=== PATIENT | male | born 1955 | race Caucasian/White ===

== ENCOUNTER → 2016-09-12 | Outpatient (CLI) | payer MEDICARE, MEDICAID ==
[~2016-09-12] MED LIST: ATORVASTATIN CA20 M1 PO; CARVEDILOL25 MG PO; CARVEDILOL3.125 MG NG; COREG25 MG PO; ENALAPRIL20 MG PO; FAMOTIDINE40 MG NG; FELODIPINE10 MG PO; FELODIPINE5 MG PO; FLUOXETINE40 MG NG; FLUOXETINE40 MG PO; HUMALOG100 U/ML SC; LEVAQUIN750 M1 PO; LIPITOR20 MG PO; LISINOPRIL10 M1 PO; LISINOPRIL20 MG NG; LYRICA100 M1 PO; METFORMIN500 MG PO; NOVOLIN R100 U/ML SC; OMNICEF250 MG/5 M PO; PLAVIX75 M1 PO; PROZAC20 MG PO; PROZAC40 M1 PO; SILVADENE1% TP; SIMVASTATIN40 MG NG; SIMVASTATIN40 MG PO; TRAMADOL HCL50 MG PO; VITAMIN D5000 I3 PO; ZOCOR80 MG PO
[2016-09-12 14:53] LABS: HEMATOCRIT 37.3 % (42.0-52.0); HEMOGLOBIN 11.9 g/dl (14.0-18.0); MEAN CELL VOLUME 93.5 fl (80.0-94.0); MEAN CORPUSCULAR HGB 29.8 pg (27.0-31.0); MEAN CORPUSCULAR HGB CONC 31.9 g/dl (33.0-37.0); MEAN PLATELET VOLUME 10.2 fl (9.6-12.3); RED BLOOD COUNT 3.99 10*6/uL (4.50-5.90); RED CELL DISTRI WIDTH 13.7 % (0-14.5); WHITE BLOOD COUNT 6.4 10*3/uL (4.8-10.8)
[2016-09-12 15:09] LABS: HEMOGLOBIN A1c 5.4 % (4.8-5.6)
[2016-09-12 15:20] LABS: ALBUMIN 3.1 gm/dl (3.1-4.5); ALKALINE PHOSPHATASE 75 U/L (45-117); BILIRUBIN, TOTAL 0.3 mg/dl (0.2-1.0); BUN 21 mg/dl (7-24); CARBON DIOXIDE 25 mmol/L (21-32); CHLORIDE 107 mmol/L (98-107); CHOLESTEROL 109 mg/dL (<200); CPK 55 U/L (39-308); EST GLOM FILT AFRICAN AMERICAN > 60 ml/min; GLUCOSE 72 mg/dL (65-99); HDL CHOLESTEROL 49 mg/dl (40-60); LDL CHOLESTEROL 42 mg/dL (9-159); POTASSIUM 4.7 mmol/L (3.5-5.1); SGOT/AST 21 IU/L (3-35); SGPT/ALT 20 U/L (12-78); SODIUM 141 mmol/L (136-145); TOTAL PROTEIN 7.5 gm/dL (6.4-8.2); TRIGLYCERIDES 92 mg/dl (<150); VLDL CHOLESTEROL 18 mg/dL (6-40)
== END | disposition home or self-care (01) ==
LOC: LAB 14:23
PROVIDERS: Family Medicine
DX: Z12.5 Encounter for screening for malignant neoplasm of prostate (principal); Z01.818 Encounter for other preprocedural examination; E11.9 Type 2 diabetes mellitus without complications; E78.00 Pure hypercholesterolemia, unspecified; I10 Essential (primary) hypertension; E56.9 Vitamin deficiency, unspecified; Z95.1 Presence of aortocoronary bypass graft

== ENCOUNTER 2016-10-26 14:40 | Inpatient (IN) | payer MEDICARE, MEDICAID ==
[~2016-10-26] VITALS: Ht 190.5 cm; Wt 83.3 kg
--- NOTE | ~2016-10-26 | CON ---
[place], [place] REPORT OF CONSULTATION NAME: YONI NEGRON UNIT #: [id number] ROOM: 528 DOCTOR: KRYSTLE LOGAN MOTLEY BIRTHDATE: [birth year] DOS: 10/27/2016 SUBJECTIVE: The patient presents as a 61-year-old white male who presents for infected ____ wound of the left foot. The patient had surgery performed a month and a half ago by Dr. Pearce. the patient was supposed to have home wound care, which did not occur until recently. The patient's stated it became more red around the surgical site and the patient was sent to the hospital. PAST MEDICAL HISTORY: Ataxia, CVA, chronic diabetes, GERD, kidney cancer, laryngeal cancer, hyperlipidemia, hypertension, normocytic anemia. PAST SURGICAL HISTORY: Amputation of left hallux and right mid foot and history of CABG, amputation of second left toe, amputated at the distal IPJ. SOCIAL HISTORY: Alcohol abuse, in remission, former smoker, quit in 2013, smoked 2 packs per day since age 13, marijuana use occasionally. FAMILY HISTORY: Father unknown, . Mother unknown, . ALLERGIES: ACETAMINOPHEN, ASPIRIN, CODEINE, BENADRYL. PHYSICAL EXAMINATION: LOWER EXTREMITIES: Mid foot amputation noted to the right foot. Left hallux amputation noted. Left foot pedal pulse is nonpalpable. Decreased skin temperature. Lack of hair growth. Skin thin and shiny. Ulceration overlying the post-amputation site over the dorsal first left metatarsal head. The ulceration is full thickness through subcutaneous tissue level. There are no signs of abscess or purulent drainage. Superficial granulation noted. No signs of proximal cellulitis. IMAGING: Radiographs taken of the left foot reveal status post amputation of first and second left toes also. ASSESSMENT: Diabetic ulceration, peripheral vascular disease, left foot. PLAN: Evaluation and management. Ordered MRI of the left foot to rule out underlying osteomyelitis. Ordered Bactroban and gauze dressing daily, also ordered arterial Doppler bilateral of lower extremity. The patient may need vascular intervention. The patient will be seen for continued care and followup. Thank you for the consultation. [place], [place] REPORT OF CONSULTATION NAME: YONI NEGRON UNIT #: [id number] ROOM: 528 DOCTOR: LOGAN DALTON DPM BIRTHDATE: [birth year] LOGAN DALTON DPM CM:CONSTR:REPORT OF CONSULTATION 1112 10/27/16 1718 interface
--- NOTE | ~2016-10-26 | PR ---
[place], [place] PROGRESS NOTE NAME: YONI NEGRON [facility] #: [id number] UNIT #: [id number] ROOM: 528 DOCTOR: LOGAN DALTON DPM BIRTHDATE: [birth year] DOS: 10/30/2016 SUBJECTIVE: The patient presents for followup of cellulitis, ulceration of the left foot. OBJECTIVE: The ulceration is noted with no signs of purulent drainage or infection. Again, the patient's arterial testing revealed severe arteriosclerotic disease throughout the left common, external iliac arteries with total occlusion of the proximal SFA on the left and the right side showed total occlusion of the right common iliac artery and previous grafts occluded. ASSESSMENT: Severe peripheral arterial disease, nonhealing ulcer, left foot. PLAN: Reviewed the MRI, which showed no signs of osteomyelitis. Discussed with the patient. As he is discharged, he is to follow with ____, his vascular surgeon as soon as possible for vascular intervention and the patient will follow with Dr. Pearce for the ulceration. LOGAN DALTON DPM CM:PNAPRIL [phone] LOGAN DALTON DPM 10/31/16 0730 interface
--- NOTE | ~2016-10-26 | PR ---
[place], [place] PROGRESS NOTE NAME: YONI NEGRON [facility] #: [id number] UNIT #: [id number] ROOM: 528 DOCTOR: BRYAN MOTLEY,JAZMYN BIRTHDATE: [birth year] DOS: 10/29/2016 SUBJECTIVE: This patient is seen for followup of cellulitis and infection of the left foot in the area of the left great toe amputation, which was performed by Dr. Pearce. The patient states he is feeling okay, has no significant complaints. OBJECTIVE: Upon evaluation of left foot, pedal pulses are absent. There is minimal edema and erythema, no purulent drainage or malodor. The wound is fairly clean. There is minimal slough tissue noted. There are no signs of abscess. No significant cellulitis seen at this time. The patient's CTA showed severe atherosclerotic disease throughout the left common and left external iliac arteries with total occlusion of the proximal SFA, reconstitution at the left popliteal artery. On the right side, there was total occlusion of the right common iliac artery, numerous collateral vessels reconstitute through the popliteal and his previous graft is occluded. ASSESSMENT: Significant peripheral artery disease, nonhealing ulcer, left foot, status post amputation, resolving cellulitis. PLAN: Dressing is changed. I discussed with the patient as well as nurse that the patient needs a vascular evaluation and intervention. If he does not, the wound may most likely will not heal. Luckily, he has no necrotic or gangrenous tissue clinically and the infection is uncontrolled at this time. He has seen at [facility] in the past, so he needs to see Vascular for evaluation. We will continue to follow him while he is in the hospital and then he can follow up with Dr. Pearce once discharged and again follow up with Vascular. JAZMYN ADAMS DPM CM:PNTRANS [phone] JAZMYN ADAMS DPM 10/29/16 0093 interface
--- NOTE | ~2016-10-26 | PR ---
[place], [place] PROGRESS NOTE NAME: YONI [facility] #: [id number] UNIT #: [id number] ROOM: 528 DOCTOR: LOGAN DALTON DPM BIRTHDATE: [birth year] DOS: 10/28/2016 ADDENDUM Infected wound of the left foot. SUBJECTIVE: The patient sent in for followup of ulceration in the left foot. The patient is resting comfortably in the bed. OBJECTIVE: Upon evaluation of the ulceration, dorsal first left metatarsal head ulceration, full thickness through subcutaneous tissue level. No signs of purulent drainage or foul odor. The patient's blood cultures negative. Wound culture negative. The patient's CBC with differential revealed WBC of 5.1. The patient's arterial Doppler reveals aortoiliac occlusive disease on the right. This extends into the common femoral and superficial femoral artery occlusion. Flow detected at the right popliteal and tibial vessels, monophasic waveforms throughout the left lower extremity. ASSESSMENT: Diabetic ulceration, left foot. PLAN: Evaluation and management. Continue conservative local wound care with Bactroban dressings. Waiting for results of the MRI to rule out osteomyelitis. Discussed with the patient and recommend vascular intervention. Again, recommend the patient be transferred for vascular intervention due to the abnormal findings and evidence of arterial occlusive disease. The patient is a candidate for arterial basis. We will follow the patient tomorrow for followup. LOGAN DALTON DPM CM:PNAPRIL [phone] LOGAN DALTON DPM 10/28/162134 interface
[2016-10-26 15:28] VITALS: BP 135/73
[2016-10-26] MEDS ORDERED: LISINOPRIL10 M1 PO (15:29)
[2016-10-26 15:55] LABS: BASO % 0.6 % (0.0-1.0); EOS # 0.2 10*3/uL (0.0-0.4); EOS % 2.7 % (1.0-4.0); HEMATOCRIT 41.5 % (42.0-52.0); HEMOGLOBIN 13.5 g/dl (14.0-18.0); LYMPH # 1.3 10*3/uL (1.3-4.4); LYMPH % 18.6 % (27.0-41.0); MEAN CORPUSCULAR HGB 29.9 pg (27.0-31.0); MEAN CORPUSCULAR HGB CONC 32.5 g/dl (33.0-37.0); MEAN PLATELET VOLUME 10.5 fl (9.6-12.3); MONO # 0.6 10*3/uL (0.1-1.0); MONO % 9.1 % (3.0-9.0); NEUT # 4.8 10*3/uL (2.3-7.9); NEUT % 68.7 % (47.0-73.0); PLATELET COUNT AUTOMATED 181 10*3/uL (130-400); RED BLOOD COUNT 4.51 10*6/uL (4.50-5.90); RED CELL DISTRI WIDTH 13.6 % (0-14.5)
[2016-10-26 16:10] LABS: ALBUMIN 3.7 gm/dl (3.1-4.5); ALKALINE PHOSPHATASE 76 U/L (45-117); BILIRUBIN, TOTAL 0.6 mg/dl (0.2-1.0); BUN 19 mg/dl (7-24); CARBON DIOXIDE 25 mmol/L (21-32); CHLORIDE 105 mmol/L (98-107); EST GLOM FILT AFRICAN AMERICAN > 60 ml/min; GLUCOSE 76 mg/dL (65-99); POTASSIUM 4.3 mmol/L (3.5-5.1); SGOT/AST 28 IU/L (3-35); SGPT/ALT 28 U/L (12-78); SODIUM 140 mmol/L (136-145); TOTAL PROTEIN 7.9 gm/dL (6.4-8.2)
[2016-10-26 20:00] VITALS: BP 146/88
[2016-10-26 20:10] VITALS: BP 146/88
[2016-10-27] VITALS: BP 145/71
[2016-10-27 04:00] VITALS: BP 142/58
[2016-10-27 07:17] LABS: BASO % 0.4 % (0.0-1.0); EOS # 0.2 10*3/uL (0.0-0.4); EOS % 3.7 % (1.0-4.0); HEMATOCRIT 38.2 % (42.0-52.0); HEMOGLOBIN 12.3 g/dl (14.0-18.0); LYMPH # 1.3 10*3/uL (1.3-4.4); LYMPH % 25.3 % (27.0-41.0); MEAN CELL VOLUME 93.2 fl (80.0-94.0); MEAN CORPUSCULAR HGB CONC 32.2 g/dl (33.0-37.0); MEAN PLATELET VOLUME 10.9 fl (9.6-12.3); MONO # 0.5 10*3/uL (0.1-1.0); MONO % 9.4 % (3.0-9.0); NEUT # 3.1 10*3/uL (2.3-7.9); PLATELET COUNT AUTOMATED 175 10*3/uL (130-400); RED CELL DISTRI WIDTH 13.5 % (0-14.5); WHITE BLOOD COUNT 5.1 10*3/uL (4.8-10.8)
[2016-10-27 07:41] LABS: ALBUMIN 3.2 gm/dl (3.1-4.5); ALKALINE PHOSPHATASE 62 U/L (45-117); BILIRUBIN, TOTAL 0.6 mg/dl (0.2-1.0); BUN 16 mg/dl (7-24); CARBON DIOXIDE 27 mmol/L (21-32); CHLORIDE 105 mmol/L (98-107); CHOLESTEROL 115 mg/dL (<200); EST GLOM FILT AFRICAN AMERICAN > 60 ml/min; GLUCOSE 72 mg/dL (65-99); HDL CHOLESTEROL 49 mg/dl (40-60); LDL CHOLESTEROL 50 mg/dL (9-159); MAGNESIUM 1.9 mg/dL (1.5-2.1); PHOSPHOROUS 2.9 mg/dL (2.5-4.9); POTASSIUM 3.9 mmol/L (3.5-5.1); SGOT/AST 36 IU/L (3-35); SGPT/ALT 25 U/L (12-78); SODIUM 141 mmol/L (136-145); TOTAL PROTEIN 6.9 gm/dL (6.4-8.2); TRIGLYCERIDES 80 mg/dl (<150); VLDL CHOLESTEROL 16 mg/dL (6-40)
[2016-10-27 07:44] LABS: HEMOGLOBIN A1c 5.2 % (4.8-5.6)
[2016-10-27 07:50] LABS: INTERNATIONAL NORM RATIO 1.1 (2.0-3.5); PROTHROMBIN TIME 11.3 SECONDS (9.0-12.4)
[2016-10-27 08:00] VITALS: BP 129/74
[2016-10-27 08:32] LABS: FOLIC ACID > 24.00 ng/mL (>5.38)
[2016-10-27 11:44] VITALS: BP 142/70
[2016-10-27 16:00] VITALS: BP 126/65
[2016-10-27 20:00] VITALS: BP 123/63
[2016-10-28] VITALS: BP 100/52
[2016-10-28 06:06] LABS: BASO % 0.6 % (0.0-1.0); EOS # 0.3 10*3/uL (0.0-0.4); EOS % 4.9 % (1.0-4.0); HEMATOCRIT 37.9 % (42.0-52.0); HEMOGLOBIN 12.4 g/dl (14.0-18.0); LYMPH # 1.4 10*3/uL (1.3-4.4); MEAN CELL VOLUME 92.9 fl (80.0-94.0); MEAN CORPUSCULAR HGB 30.4 pg (27.0-31.0); MEAN CORPUSCULAR HGB CONC 32.7 g/dl (33.0-37.0); MEAN PLATELET VOLUME 10.9 fl (9.6-12.3); MONO # 0.7 10*3/uL (0.1-1.0); NEUT # 2.8 10*3/uL (2.3-7.9); NEUT % 54.3 % (47.0-73.0); PLATELET COUNT AUTOMATED 166 10*3/uL (130-400); RED BLOOD COUNT 4.08 10*6/uL (4.50-5.90); RED CELL DISTRI WIDTH 13.5 % (0-14.5); WHITE BLOOD COUNT 5.1 10*3/uL (4.8-10.8)
[2016-10-28 08:00] VITALS: BP 128/70
[2016-10-28 12:00] VITALS: BP 140/68
[2016-10-28 16:00] VITALS: BP 122/50
[2016-10-28 20:00] VITALS: BP 145/65
[2016-10-29] VITALS: BP 108/55
[2016-10-29 04:00] VITALS: BP 127/58
[2016-10-29 06:53] LABS: BUN 20 mg/dl (7-24); CARBON DIOXIDE 25 mmol/L (21-32); CHLORIDE 103 mmol/L (98-107); EST GLOM FILT AFRICAN AMERICAN > 60 ml/min; GLUCOSE 76 mg/dL (65-99); SODIUM 137 mmol/L (136-145)
[2016-10-29 08:00] VITALS: BP 104/76
[2016-10-29 12:00] VITALS: BP 124/62
[2016-10-29 16:00] VITALS: BP 138/62
[2016-10-29 20:00] VITALS: BP 131/57
[2016-10-30] VITALS: BP 132/62
[2016-10-30 08:00] VITALS: BP 108/52
[2016-10-30] MEDS ORDERED: BACTROBAN OINT0.9 GM T (11:38)
[2016-10-30 12:00] VITALS: BP 127/57
== END 2016-10-30 14:51 | disposition home health service (06) | DRG 863 ==
LOC: ED 14:40 → EDHOLD 18:27 → 5E 18:27
PROVIDERS: Internal Medicine; Internal Medicine Hospice and Palliative Medicine; Physician Assistant
DX: T81.4XXA Infection following a procedure, initial encounter (principal); I74.5 Embolism and thrombosis of iliac artery; M00.9 Pyogenic arthritis, unspecified; E11.51 Type 2 diabetes mellitus with diabetic peripheral angiopathy without gangrene; L03.116 Cellulitis of left lower limb; E11.621 Type 2 diabetes mellitus with foot ulcer; D64.9 Anemia, unspecified; I10 Essential (primary) hypertension; E78.5 Hyperlipidemia, unspecified; K21.9 Gastro-esophageal reflux disease without esophagitis; F10.10 Alcohol abuse, uncomplicated; L97.529 Non-pressure chronic ulcer of other part of left foot with unspecified severity; Y83.5 Amputation of limb(s) as the cause of abnormal reaction of the patient, or of later complication, without mention of misadventure at the time of the procedure; R06.82 Tachypnea, not elsewhere classified; M60.872 Other myositis, left ankle and foot; R00.1 Bradycardia, unspecified; Z85.528 Personal history of other malignant neoplasm of kidney; Z95.1 Presence of aortocoronary bypass graft; Z87.891 Personal history of nicotine dependence; Z89.412 Acquired absence of left great toe; Y92.89 Other specified places as the place of occurrence of the external cause; Z88.6 Allergy status to analgesic agent; Z88.8 Allergy status to other drugs, medicaments and biological substances; Z86.73 Personal history of transient ischemic attack (TIA), and cerebral infarction without residual deficits; Z79.899 Other long term (current) drug therapy

== ENCOUNTER → 2017-01-22 | Outpatient (CLI) | payer MEDICARE, MEDICAID ==
[~2017-01-22] MED LIST changes: +BACTROBAN OINT0.9 GM T
[2017-01-22 12:01] LABS: ALBUMIN 3.5 gm/dl (3.1-4.5); BUN 18 mg/dl (7-24); CHLORIDE 106 mmol/L (98-107); CHOLESTEROL 150 mg/dL (<200); CREATININE 1.12 mg/dL (0.70-1.30); HDL CHOLESTEROL 50 mg/dl (40-60); LDL CHOLESTEROL 78 mg/dL (9-159); POTASSIUM 4.7 mmol/L (3.5-5.1); SGOT/AST 26 IU/L (3-35); SGPT/ALT 25 U/L (12-78); SODIUM 137 mmol/L (136-145); TOTAL PROTEIN 7.4 gm/dL (6.4-8.2); TRIGLYCERIDES 112 mg/dl (<150); VLDL CHOLESTEROL 22 mg/dL (6-40)
[2017-01-22 12:02] LABS: ALKALINE PHOSPHATASE 66 U/L (45-117); CPK 95 U/L (39-308)
== END | disposition home or self-care (01) ==
LOC: LAB 11:00
PROVIDERS: Family Medicine
DX: E78.00 Pure hypercholesterolemia, unspecified (principal)

== ENCOUNTER 2017-02-15 12:55 | Emergency (ER) | payer MEDICARE, MEDICAID ==
[~2017-02-15] VITALS: Ht 190.5 cm; Wt 81.6 kg
[2017-02-15 14:18] LABS: BASO % 0.4 % (0.0-1.0); EOS # 0.2 10*3/uL (0.0-0.4); EOS % 2.6 % (1.0-4.0); HEMATOCRIT 44.1 % (42.0-52.0); HEMOGLOBIN 14.1 g/dl (14.0-18.0); LYMPH # 1.3 10*3/uL (1.3-4.4); LYMPH % 14.6 % (27.0-41.0); MEAN CELL VOLUME 93.2 fl (80.0-94.0); MEAN CORPUSCULAR HGB 29.8 pg (27.0-31.0); MEAN PLATELET VOLUME 10.4 fl (9.6-12.3); MONO # 0.9 10*3/uL (0.1-1.0); MONO % 9.5 % (3.0-9.0); NEUT # 6.5 10*3/uL (2.3-7.9); NEUT % 72.7 % (47.0-73.0); PLATELET COUNT AUTOMATED 175 10*3/uL (130-400); RED BLOOD COUNT 4.73 10*6/uL (4.50-5.90); RED CELL DISTRI WIDTH 13.6 % (0-14.5)
[2017-02-15 14:26] LABS: ACT PARTIAL THROMBO TIME 24.3 SECONDS (20.8-31.5)
[2017-02-15 14:32] LABS: ALBUMIN 3.5 gm/dl (3.1-4.5); ALKALINE PHOSPHATASE 68 U/L (45-117); BUN 23 mg/dl (7-24); CHLORIDE 108 mmol/L (98-107); CREATININE 1.17 mg/dL (0.70-1.30); LIPASE 193 U/L (73-393); MAGNESIUM 2.1 mg/dL (1.5-2.1); POTASSIUM 4.9 mmol/L (3.5-5.1); SGOT/AST 19 IU/L (3-35); SGPT/ALT 20 U/L (12-78); SODIUM 138 mmol/L (136-145); TOTAL PROTEIN 7.6 gm/dL (6.4-8.2)
[2017-02-15 14:37] LABS: TROPONIN I < 0.015 ng/ml (<0.045)
[2017-02-15] MEDS ORDERED: PHENERGAN25 M3 PO (17:08)
== END 2017-02-15 17:35 | disposition home or self-care (01) ==
LOC: ED 12:55
PROVIDERS: Emergency Medicine
DX: K52.9 Noninfective gastroenteritis and colitis, unspecified (principal); E11.9 Type 2 diabetes mellitus without complications; K21.9 Gastro-esophageal reflux disease without esophagitis; I10 Essential (primary) hypertension; E78.5 Hyperlipidemia, unspecified; F12.10 Cannabis abuse, uncomplicated; Z86.73 Personal history of transient ischemic attack (TIA), and cerebral infarction without residual deficits; Z85.528 Personal history of other malignant neoplasm of kidney; Z85.21 Personal history of malignant neoplasm of larynx; Z87.891 Personal history of nicotine dependence; Z95.1 Presence of aortocoronary bypass graft; Z89.412 Acquired absence of left great toe; Z79.899 Other long term (current) drug therapy; Z88.6 Allergy status to analgesic agent; Z88.5 Allergy status to narcotic agent

== ENCOUNTER 2017-04-30 09:57 | Emergency (ER) | payer MEDICARE, MEDICAID ==
[~2017-04-30] VITALS: Ht 190.5 cm; Wt 83.0 kg
[~2017-04-30 09:57] MED LIST changes: +PHENERGAN25 M3 PO
[2017-04-30] MEDS ORDERED: METFORMIN HCL500 MG PO (10:21)
[2017-04-30 11:35] LABS: BASO % 0.6 % (0.0-1.0); EOS # 0.2 10*3/uL (0.0-0.4); EOS % 3.1 % (1.0-4.0); HEMATOCRIT 39.8 % (42.0-52.0); HEMOGLOBIN 13.1 g/dl (14.0-18.0); LYMPH # 1.7 10*3/uL (1.3-4.4); LYMPH % 23.6 % (27.0-41.0); MEAN CORPUSCULAR HGB 29.3 pg (27.0-31.0); MEAN CORPUSCULAR HGB CONC 32.9 g/dl (33.0-37.0); MEAN PLATELET VOLUME 10.6 fl (9.6-12.3); MONO # 0.6 10*3/uL (0.1-1.0); MONO % 8.8 % (3.0-9.0); NEUT # 4.6 10*3/uL (2.3-7.9); NEUT % 63.8 % (47.0-73.0); PLATELET COUNT AUTOMATED 193 10*3/uL (130-400); RED BLOOD COUNT 4.47 10*6/uL (4.50-5.90); RED CELL DISTRI WIDTH 13.2 % (0-14.5); WHITE BLOOD COUNT 7.1 10*3/uL (4.8-10.8)
[2017-04-30 11:50] LABS: ALBUMIN 3.5 gm/dl (3.1-4.5); ALKALINE PHOSPHATASE 70 U/L (45-117); BUN 14 mg/dl (7-24); CHLORIDE 105 mmol/L (98-107); CREATININE 1.06 mg/dL (0.70-1.30); POTASSIUM 4.6 mmol/L (3.5-5.1); SGOT/AST 22 IU/L (3-35); SGPT/ALT 22 U/L (12-78); SODIUM 138 mmol/L (136-145); TOTAL PROTEIN 7.7 gm/dL (6.4-8.2)
[2017-04-30 12:25] LABS: BILIRUBIN NEGATIVE (NEGATIVE); BLOOD NEGATIVE (NEGATIVE); CLARITY SL CLOUDY (CLEAR); COLOR YELLOW (YELLOW); GLUCOSE NEGATIVE (NEGATIVE); KETONE NEGATIVE (NEGATIVE); LEUKO ESTERASE NEGATIVE (NEGATIVE); NITRITE NEGATIVE (NEGATIVE); SPECIFIC GRAVITY 1.015 (1.005-1.030); UROBILINOGEN 0.2 E.U./dl (0.2-1.0)
[2017-04-30] MEDS ORDERED: LEVOFLOXACIN500 MG PO (13:18)
== END 2017-04-30 14:07 | disposition home or self-care (01) ==
LOC: ED 09:57
PROVIDERS: Nurse Practitioner
DX: J40 Bronchitis, not specified as acute or chronic (principal); L08.9 Local infection of the skin and subcutaneous tissue, unspecified; M79.661 Pain in right lower leg; F12.10 Cannabis abuse, uncomplicated; E11.9 Type 2 diabetes mellitus without complications; Z95.1 Presence of aortocoronary bypass graft; Z98.890 Other specified postprocedural states; Z87.891 Personal history of nicotine dependence; Z89.412 Acquired absence of left great toe; Z79.899 Other long term (current) drug therapy; Z88.6 Allergy status to analgesic agent; Z88.5 Allergy status to narcotic agent; Z88.8 Allergy status to other drugs, medicaments and biological substances

== ENCOUNTER 2017-07-18 19:07 | Inpatient (IN) | payer MEDICARE, MEDICAID ==
[~2017-07-18] VITALS: Ht 190.5 cm; Wt 91.5 kg
--- NOTE | ~2017-07-18 | PR ---
[place], [place] PROGRESS NOTE NAME: YONI NEGRON UNIT #: [id number] ROOM: 519 DOCTOR: LISA BATES MD BIRTHDATE: [birth year] DOS: SUBJECTIVE: The patient is feeling good, has no complaints today. OBJECTIVE: VITAL SIGNS: Graphic trend shows blood pressure 156/85, pulse of 53, respirations 20, temperature 97.2. LUNGS: Diminished breath sounds, much improved. HEART: Regular. ABDOMEN: Obese. EXTREMITIES: Without any edema. ASSESSMENT AND PLAN: 1. Bilateral pneumonia, on antibiotics, with negative blood cultures. 2. Hypoxic respiratory failure. He is finally off the oxygen, so a repeat chest x-ray will be ordered and if it shows improvement, the plan is to discharge him to home tomorrow. LISA BATES MD CM:PNAPRIL [id number] LISA BATES MD 07/21/17 1045 interface
--- NOTE | ~2017-07-18 | PR ---
[place], [place] PROGRESS NOTE [facility] [id number] UNIT #: [id number] ROOM: 519 DOCTOR: LISA BATES MD BIRTHDATE: [birth year] DOS: 07/20/2017 SUBJECTIVE: The patient is feeling better, does not have any complaints. His cough and shortness of breath have subsided. OBJECTIVE: VITAL SIGNS: Blood pressure is 152/73, pulse of 52, respirations 20, temperature 97.1. LUNGS: Clear. HEART: Regular. ABDOMEN: Obese, soft. EXTREMITIES: Without any edema. Right-sided hemiparesis. ASSESSMENT AND PLAN: 1. The patient with bilateral pneumonia, possible gram negative, on antibiotics. Clinically, the patient is improved. 2. Acute asthmatoid wheeze which is definitely better with IV steroids. 3. Hypoxic respiratory failure. We will recheck oxygen level in the morning. LISA BATES MD CM:PNTRANS [phone] LISA BATES MD 07/20/172033 interface
--- NOTE | ~2017-07-18 | WRIGHTHP ---
[place], [place] PATIENT HISTORY AND PHYSICAL EXAM NAME: YONI NEGRON [facility] #: [id number] UNIT #: [id number] ROOM: 519 DOCTOR: LISA BATES MD BIRTHDATE: [birth year] DOS: 07/18/2017 HISTORY OF PRESENT ILLNESS: The patient is 62-year-old, not known to me. The patient comes in with complaints of cough and difficulty breathing. The patient lives at home with his . His has been sick for the last few days with a viral chest infection and he contracted it about 3 days ago. He continued to be short of breath and had a cough and so his brought him to the Emergency Room. The patient was evaluated in the ER, was admitted with diagnosis of acute exacerbation of COPD. The patient this morning appears to be slightly short of breath with a moist sounding cough. He has dysphagia. He is unable to communicate very well. His answered most of the questions. PAST MEDICAL HISTORY: Significant for: 1. History of CVA about 2 years ago with resulting right-sided complete hemiparesis. 2. Type 2 diabetes mellitus, non-insulin dependent. 3. Severe peripheral vascular disease bilaterally with amputation of the right and left big toes amputation. 4. Coronary artery disease, status post CABG. 5. History of CA of the throat, status post XRT. 6. CA of the liver, status post chemotherapy. 7. Benign hypertension. MEDICATIONS: He is on are atorvastatin 20 daily, carvedilol 25 b.i.d., Plavix 75 daily, fluoxetine 40 daily, lisinopril 10 daily, metformin 500 b.i.d. SOCIAL HISTORY: History of smoking about 4 years ago. Denies using any alcohol. Lives at home with his who is a retired nurse's aide and he does not have any children. PHYSICAL EXAMINATION: GENERAL: He is awake and alert and oriented, mildly tachypneic. VITAL SIGNS: Respirations about 24, moist cough, blood pressure 172/73, pulse of 63, respirations 24, temperature 97.3. LUNGS: Diminished breath sounds, scattered wheezes and rhonchi. HEART: Regular. ABDOMEN: Obese. EXTREMITIES: Without edema. Right-sided hemiparesis complete. The right leg appears quite stiff and contracted and evidence of amputation bilaterally. ASSESSMENT AND PLAN: 1. A patient who has acute exacerbation of chronic obstructive pulmonary disease. The patient is placed on IV steroids and antibiotics and maximized the bronchodilators, breathing treatments have been ordered. The patient is an ex-smoker, may have underlying chronic lung disease. 2. Acute tracheobronchitis. Sputum cultures will be sent. The patient is also ordered a rapid flu test, placed on IV azithromycin and a CT of the chest will be done to make sure he does not have any underlying pneumonia. 3. Type 2 diabetes mellitus. Blood sugars will be checked and coverage scale instituted. Because of steroids, blood sugars may run high. [place], [place] PATIENT HISTORY AND PHYSICAL EXAM NAME: YONI NEGRON UNIT #: [id number] ROOM: [facility] DOCTOR: LISA BATES MD BIRTHDATE: [birth year] 4. History of cerebrovascular accident with adult failure to thrive from hemiparesis, could get PT, OT consultation if his stay is long. LISA BATES MD CM:HISPHYS:PATIENT HISTORY AND PHYSICAL EXAMINATION 3 2 LISA BATES MD 07/22/1743 interface
--- NOTE | ~2017-07-18 | DS ---
[place], [place] DISCHARGE SUMMARY NAME: YONI NEGRON [facility] #: [id number] UNIT #: [id number] ROOM: 519 DOCTOR: LISA BATES MD BIRTHDATE: [birth year] DOS: 07/22/2017 HOSPITAL COURSE: The patient is 62 years old, not known to me, comes in with complaints of shortness of breath, cough of about 3 days duration. Please see H and P for details. The patient was admitted to the hospital, was started on IV antibiotics, breathing treatments and IV steroids. The patient seemed to have acute exacerbation of COPD and acute tracheobronchitis. A CT of the chest was done, which showed bilateral pneumonia, most likely Gram-negative and the patient was continued on broad-spectrum antibiotics. His blood sugars have been checked and well controlled even on the steroids. The patient's condition was discussed with the family members multiple times. He has history of a CVA, so he has underlying dysphagia, so most of the communication is through his . With antibiotic and steroids, his symptoms have resolved and his chest x-ray shows no new changes, but the patient would benefit from a CT scan of the chest as an outpatient to make sure the pneumonia is cleared. He had acute hypoxic respiratory failure on admission. This has also resolved and he does not require any oxygen. DIAGNOSES: 1. Bilateral pneumonia, possible gram negative. 2. Hypoxic respiratory failure, acute, which has resolved. 3. Chronic obstructive pulmonary disease with acute exacerbation. 4. History of a cerebrovascular accident with dysphagia and right-sided hemiparesis. 5. Type 2 diabetes mellitus, non-insulin dependent. 6. History of severe peripheral vascular disease, status post mid tarsal amputation of the left foot and right big toe amputation. 7. Coronary artery disease, history of coronary artery bypass graft. 8. History of throat, status post XRT. 9. Carcinoma of the liver, status post chemotherapy. 10. Benign hypertension. MEDICATIONS: On discharge will be the same as in admission. No changes were made to the oral medications. The new prescriptions given were tapering dose of prednisone, Cipro 500 mg twice a day. [place], [place] DISCHARGE SUMMARY NAME: YONI NEGRON [facility] #: [id number] UNIT #: [id number] ROOM: 519 DOCTOR: LISA BATES MD BIRTHDATE: [birth year] LISA BATES MD CM:PETERSON [phone] LISA BATES MD 07/24/172235 interface
--- NOTE | ~2017-07-18 | PR ---
[place], [place] PROGRESS NOTE [id number] UNIT #: [id number] ROOM: 519 DOCTOR: LISA BATES MD BIRTHDATE: [birth year] DOS: 07/22/2017 SUBJECTIVE: The patient is doing fine without any complaints today. Shortness of breath and cough has subsided. His appetite is much improved. OBJECTIVE EXAMINATION: GENERAL: He is awake and alert and oriented, does try to communicate, but he has dysphagia. VITAL SIGNS: Blood pressure is 160/77, pulse of 50, respirations 16, temperature 97.4. LUNGS: Clear. HEART: Regular. ABDOMEN: Obese, soft. EXTREMITIES: Without any edema. ASSESSMENT AND PLAN: 1. Bilateral pneumonia, improvement clinically noted. White cell count has come down, so the plan is to discharge him to home today. He may require a CT scan of the chest to be done as an outpatient to make sure the pneumonia is clearing, since the chest x-ray never did show pneumonia even at the time of admission: 2. Hypoxic respiratory failure, which has resolved. He is back on room air right now and the plan is to discharge him on no oxygen. 3. History of cerebrovascular accident with dysphagia. The patient's takes care of him at home, but advised to follow with Dr. Green. LISA BATES MD CM:PNTRANS [phone] LISA BATES MD 07/22/17 2349 interface
[~2017-07-18 19:07] MED LIST changes: +LEVOFLOXACIN500 MG PO; +METFORMIN HCL500 MG PO
[2017-07-18 19:18] VITALS: BP 194/84
[2017-07-18 19:55] LABS: BASO % 0.5 % (0.0-1.0); EOS # 0.1 10*3/uL (0.0-0.4); EOS % 2.8 % (1.0-4.0); HEMATOCRIT 44.7 % (42.0-52.0); HEMOGLOBIN 14.5 g/dl (14.0-18.0); LYMPH % 23.8 % (27.0-41.0); MEAN CELL VOLUME 90.7 fl (80.0-94.0); MEAN CORPUSCULAR HGB 29.4 pg (27.0-31.0); MEAN CORPUSCULAR HGB CONC 32.4 g/dl (33.0-37.0); MEAN PLATELET VOLUME 10.7 fl (9.6-12.3); MONO # 0.6 10*3/uL (0.1-1.0); MONO % 13.6 % (3.0-9.0); NEUT # 2.5 10*3/uL (2.3-7.9); NEUT % 59.1 % (47.0-73.0); PLATELET COUNT AUTOMATED 144 10*3/uL (130-400); RED BLOOD COUNT 4.93 10*6/uL (4.50-5.90); RED CELL DISTRI WIDTH 14.1 % (0-14.5); WHITE BLOOD COUNT 4.3 10*3/uL (4.8-10.8)
[2017-07-18 20:06] LABS: ACT PARTIAL THROMBO TIME 24.7 SECONDS (20.8-31.5); INTERNATIONAL NORM RATIO 1.1 (2.0-3.5)
[2017-07-18 20:12] LABS: ALBUMIN 3.6 gm/dl (3.1-4.5); ALKALINE PHOSPHATASE 66 U/L (45-117); BUN 18 mg/dl (7-24); CHLORIDE 100 mmol/L (98-107); CREATININE 1.15 mg/dL (0.70-1.30); POTASSIUM 4.1 mmol/L (3.5-5.1); SGOT/AST 27 IU/L (3-35); SGPT/ALT 23 U/L (12-78); SODIUM 135 mmol/L (136-145); TOTAL PROTEIN 7.9 gm/dL (6.4-8.2)
[2017-07-18 20:16] LABS: TROPONIN I < 0.015 ng/ml (<0.045)
[2017-07-18 20:35] VITALS: BP 148/70
[2017-07-18 21:27] VITALS: BP 166/65
[2017-07-18 21:30] VITALS: BP 186/64
[2017-07-18 22:00] VITALS: BP 186/64
[2017-07-19] VITALS: BP 172/73
[2017-07-19 08:00] VITALS: BP 164/64
[2017-07-19 12:00] VITALS: BP 164/60
[2017-07-19 16:00] VITALS: BP 172/60
[2017-07-19 20:00] VITALS: BP 167/70
[2017-07-20] VITALS: BP 159/61
[2017-07-20 07:47] VITALS: BP 128/65
[2017-07-20 12:00] VITALS: BP 152/73
[2017-07-20 16:18] VITALS: BP 152/73
[2017-07-20 20:03] VITALS: BP 154/74
[2017-07-21] VITALS: BP 163/56
[2017-07-21 07:59] VITALS: BP 156/85
[2017-07-21 12:00] VITALS: BP 144/63
[2017-07-21 17:16] VITALS: BP 166/83
[2017-07-21 20:24] VITALS: BP 133/83
[2017-07-22 00:05] VITALS: BP 149/66
[2017-07-22 08:00] VITALS: BP 160/77
[2017-07-22] MEDS ORDERED: PREDNISONE5 MG PO (08:57)
[2017-07-22] MEDS ORDERED: CIPRO500 MG PO (08:57)
== END 2017-07-22 09:57 | disposition home or self-care (01) | DRG 871 ==
LOC: ED 19:07 → EDHOLD 21:04 → 5E 21:04
PROVIDERS: Student in an Organized Health Care Education/Training Program
DX: A41.9 Sepsis, unspecified organism (principal); J96.91 Respiratory failure, unspecified with hypoxia; J44.0 Chronic obstructive pulmonary disease with (acute) lower respiratory infection; E11.51 Type 2 diabetes mellitus with diabetic peripheral angiopathy without gangrene; R13.10 Dysphagia, unspecified; J18.9 Pneumonia, unspecified organism; J44.1 Chronic obstructive pulmonary disease with (acute) exacerbation; I69.351 Hemiplegia and hemiparesis following cerebral infarction affecting right dominant side; J20.9 Acute bronchitis, unspecified; K21.9 Gastro-esophageal reflux disease without esophagitis; I10 Essential (primary) hypertension; I25.10 Atherosclerotic heart disease of native coronary artery without angina pectoris; Z88.6 Allergy status to analgesic agent; Z88.8 Allergy status to other drugs, medicaments and biological substances; Z79.899 Other long term (current) drug therapy; Z79.84 Long term (current) use of oral hypoglycemic drugs; Z85.528 Personal history of other malignant neoplasm of kidney; Z85.21 Personal history of malignant neoplasm of larynx; Z85.79 Personal history of other malignant neoplasms of lymphoid, hematopoietic and related tissues; Z95.1 Presence of aortocoronary bypass graft; Z89.412 Acquired absence of left great toe; Z87.891 Personal history of nicotine dependence; Z85.05 Personal history of malignant neoplasm of liver; Z79.02 Long term (current) use of antithrombotics/antiplatelets; I69.391 Dysphagia following cerebral infarction; Z89.411 Acquired absence of right great toe

== ENCOUNTER 2017-07-27 14:21 | Emergency (ER) | payer MEDICARE, MEDICAID ==
[~2017-07-27] VITALS: Ht 190.5 cm; Wt 90.7 kg
[~2017-07-27 14:21] MED LIST changes: +CIPRO500 MG PO; +PREDNISONE5 MG PO
[2017-07-27 15:26] LABS: ABG BASE EXCESS 0.5 mmol/L (-2.0-2.0); ABG HCO3 23.3 mmol/l (22-26); ABG O2 SATURATION 97.6 % (95-97); ARTERIAL BLOOD GAS PH 7.463 (7.35-7.45); ARTERIAL BLOOD GAS PO2 89.5 mmHg (80-90)
[2017-07-27 15:38] LABS: BUN 16 mg/dl (7-24); CHLORIDE 102 mmol/L (98-107); CREATININE 1.06 mg/dL (0.70-1.30); POTASSIUM 4.1 mmol/L (3.5-5.1); SGOT/AST 18 IU/L (3-35); SGPT/ALT 30 U/L (12-78); SODIUM 138 mmol/L (136-145)
[2017-07-27 15:39] LABS: ALKALINE PHOSPHATASE 63 U/L (45-117)
[2017-07-27] MEDS ORDERED: VIBRAMYCIN100 MG PO (17:05)
== END 2017-07-27 17:14 | disposition home or self-care (01) ==
LOC: ED 14:21
PROVIDERS: Emergency Medicine
DX: J40 Bronchitis, not specified as acute or chronic (principal); Z86.73 Personal history of transient ischemic attack (TIA), and cerebral infarction without residual deficits; Z88.6 Allergy status to analgesic agent; Z88.8 Allergy status to other drugs, medicaments and biological substances; Z79.899 Other long term (current) drug therapy; Z87.891 Personal history of nicotine dependence

== ENCOUNTER 2017-08-14 18:04 | Emergency (ER) | payer MEDICARE, MEDICAID ==
[~2017-08-14] VITALS: Ht 190 cm; Wt 99.8 kg
[~2017-08-14 18:04] MED LIST changes: +VIBRAMYCIN100 MG PO
== END 2017-08-14 19:34 | disposition home or self-care (01) ==
LOC: ED 18:04
DX: S00.81XA Abrasion of other part of head, initial encounter (principal); F12.10 Cannabis abuse, uncomplicated; Z87.891 Personal history of nicotine dependence; Z95.1 Presence of aortocoronary bypass graft; Z98.890 Other specified postprocedural states; Z79.899 Other long term (current) drug therapy; Z88.6 Allergy status to analgesic agent; Z88.5 Allergy status to narcotic agent; W19.XXXA Unspecified fall, initial encounter; Y93.89 Activity, other specified; Y92.099 Unspecified place in other non-institutional residence as the place of occurrence of the external cause; Y99.9 Unspecified external cause status

== ENCOUNTER 2018-01-13 23:24 | Emergency (ER) | payer OTHER, MEDICAID ==
[~2018-01-13] VITALS: Ht 190.5 cm; Wt 102.1 kg
--- NOTE | ~2018-01-13 | EKG ---
[place], [place] ELECTROCARDIOGRAM REPORT NAME: YONI NEGRON UNIT #: [id number] ROOM: DOCTOR: EPIPHANY DRAFT REPORT BIRTHDATE: [birth year] [facility] Test Date: 2018-01-13 Test Time: 23:46:43 Pat Name: YONI NEGRON Department: ED Room: 2 Gender: M Replenishment Associate: George Horner : 1955 Requested By: WALT STODDARD Order Number: [id number] Reading MD: Hipolito Kelly MD Measurements Intervals Florien Rate: 70 P: IN: QRS: -47 QRSD: 107 T: 83 QT: 416 QTc: 449 Interpretive Statements Sinus arrhythmia with PACs A single PVC is seen Left anterior fascicular block Nonspecific T abnormalities, lateral leads Electronically Signed On 01-14-2018 20:02:14 PDT by Hipolito Kelly MD CM:EKGRPT:ELECTROCARDIOGRAM REPORT 2346 Abena KOROMA DRAFT REPORT WALT STODDARD DO
[2018-01-13 23:54] LABS: BASO # 0.1 10*3/uL (0.0-0.1); BASO % 0.6 % (0.0-1.0); EOS # 0.2 10*3/uL (0.0-0.4); EOS % 2.3 % (1.0-4.0); HEMATOCRIT 37.1 % (42.0-52.0); HEMOGLOBIN 12.1 g/dl (14.0-18.0); LYMPH # 1.9 10*3/uL (1.3-4.4); LYMPH % 20.2 % (27.0-41.0); MEAN CELL VOLUME 92.5 fl (80.0-94.0); MEAN CORPUSCULAR HGB 30.2 pg (27.0-31.0); MEAN CORPUSCULAR HGB CONC 32.6 g/dl (33.0-37.0); MEAN PLATELET VOLUME 10.9 fl (9.6-12.3); MONO # 1.1 10*3/uL (0.1-1.0); MONO % 11.7 % (3.0-9.0); NEUT # 6.1 10*3/uL (2.3-7.9); PLATELET COUNT AUTOMATED 191 10*3/uL (130-400); RED BLOOD COUNT 4.01 10*6/uL (4.50-5.90); RED CELL DISTRI WIDTH 13.7 % (0-14.5); WHITE BLOOD COUNT 9.4 10*3/uL (4.8-10.8)
[2018-01-14 00:04] LABS: ACT PARTIAL THROMBO TIME 22.3 SECONDS (20.8-31.5)
[2018-01-14 00:12] LABS: ALBUMIN 3.3 gm/dl (3.1-4.5); ALKALINE PHOSPHATASE 63 U/L (45-117); BUN 22 mg/dl (7-24); CHLORIDE 109 mmol/L (98-107); CREATININE 1.35 mg/dL (0.70-1.30); SGOT/AST 23 IU/L (3-35); SGPT/ALT 22 U/L (12-78); SODIUM 141 mmol/L (136-145); TROPONIN I < 0.015 ng/ml (<0.045)
== END 2018-01-14 01:35 | disposition short-term general hospital (02) ==
LOC: ED 23:24
PROVIDERS: Student in an Organized Health Care Education/Training Program
DX: I63.9 Cerebral infarction, unspecified (principal); J44.9 Chronic obstructive pulmonary disease, unspecified; K21.9 Gastro-esophageal reflux disease without esophagitis; E78.5 Hyperlipidemia, unspecified; I10 Essential (primary) hypertension; E11.9 Type 2 diabetes mellitus without complications; Z88.6 Allergy status to analgesic agent; Z88.8 Allergy status to other drugs, medicaments and biological substances; Z79.899 Other long term (current) drug therapy; Z87.891 Personal history of nicotine dependence; Z95.1 Presence of aortocoronary bypass graft; Z89.412 Acquired absence of left great toe

== ENCOUNTER 2018-04-01 13:59 | Inpatient (IN) | payer MEDICARE ==
[~2018-04-01] VITALS: Ht 185.4 cm; Wt 97.2 kg
--- NOTE | ~2018-04-01 | PR ---
[place], [place] PROGRESS NOTE NAME: [facility] [id number] UNIT #: [id number] ROOM: 505 DOCTOR: FINA SILVA MD BIRTHDATE: [birth year] DOS: 04/07/2018 SUBJECTIVE: The patient is doing better, working with Physical Therapy, waiting to go to rehab. OBJECTIVE: VITAL SIGNS: Blood pressure 152/51, heart rate 56 beats per minute, breathing 18 times per minute. The patient is afebrile. GENERAL APPEARANCE: The patient is alert and oriented x 3, in no visible distress. HEENT AND NECK: Exam within normal limits. CARDIOVASCULAR SYSTEM: Heart rate is regular in rate and rhythm. S1 and S2 normally audible. LUNGS: Clear to auscultation. ABDOMEN: Soft, nontender. No obvious organomegaly. Bowel sounds are present. EXTREMITIES: Right hemiparesis and right distal foot amputation. IMPRESSION AND PLAN: 1. Late onset Alzheimer's type dementia with behavioral issues, evaluated by Psychiatry. 2. Major depression, recurrent, treated and followed. 3. Benign essential hypertension, treated and controlled. The patient is on Coreg and lisinopril. 4. Cerebrovascular accident with right hemiparesis and disability, for which he requires rehabilitation. The patient is working with case management and social services analyst. 5. Coronary artery disease of [place] vessels, without any chest pains. 6. Type 2 diabetes mellitus, with reasonably controlled blood sugars. FINA SILVA MD CM:PNTRANS 05 10 FINA SILVA MD 04/07/182110 interface
--- NOTE | ~2018-04-01 | CON ---
[place], [place] REPORT OF CONSULTATION [id number] UNIT #: [id number] ROOM: 505 DOCTOR: PHD TRINI DENNY BIRTHDATE: [birth year] DOS: 04/02/2018 HISTORY OF PRESENT ILLNESS: The patient is a 63-year-old male referred by Dr. Gross to determine appropriateness of Behavioral Health Unit placement due to agitated behaviors. The patient lives with his girlfriend. At the present time, the patient is on the 5th floor at [facility]. 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 He does not have any children. He abused alcohol in the past, but has not used it for many years. Tobacco use, he quit smoking tobacco in 2013 and he reports daily marijuana use. PAST MEDICAL HISTORY: COPD, CVA with dysphagia, expressive aphasia, right hemiparesis, type 2 diabetes, severe peripheral vascular disease status post right mid tarsal amputation, history of throat cancer, history of liver cancer, benign essential hypertension, history of late onset Alzheimer's dementia. MEDICATIONS: Zestril, Prozac, Plavix, Coreg. PHYSICAL EXAMINATION: GENERAL: The patient was lying comfortably in bed, in no apparent distress. NEUROLOGIC: He was awake, alert and oriented to person, place and time. He was very pleasant and cooperative with the evaluation. Eye contact and social skills were appropriate. Affect was appropriately wide ranging and mood was stable. He endorsed some anxiety about his health conditions, but denied need for inpatient psychiatric treatment. He firmly denied suicidal ideation, plan and intent. He denied homicidal ideation. Speech was noteworthy for nonfluent aphasia. Receptive language appeared within normal limits conversationally. Expressive language was impaired. Thought process appeared goal directed. Thought content was negative for hallucinations or delusions. The patient did not engage in any inappropriate behavior during the evaluation. I spoke with his nurse who denied any agitated or inappropriate behaviors on behalf of the patient. DIAGNOSIS: Major depressive disorder, recurrent, unspecified. PLAN: The patient's behaviors appear to be appropriate at this time. He does not appear to be an appropriate candidate for the [facility] Unit and he denies need for further mental health treatment. Thank you very much for this consult. [place], [place] REPORT OF CONSULTATION NAME: YONI NEGRON UNIT #: [id number] ROOM: 505 DOCTOR: TRINI PHD DENNY BIRTHDATE: [birth year] Peggy Pratt, PhD CM:CONSTR:REPORT OF CONSULTATION 1601 04/03/18 0057 interface
--- NOTE | ~2018-04-01 | PR ---
[employer], [place] PROGRESS NOTE NAME: YONI NEGRON UNIT #: [id number] ROOM: 505 DOCTOR: FINA SILVA MD BIRTHDATE: [birth year] DOS: 04/06/2018 SUBJECTIVE: The patient continues to feel better. He is waiting for transfer to rehab. PHYSICAL EXAMINATION: GENERAL APPEARANCE: The patient is alert and oriented x 3, in no visible distress. VITAL SIGNS: Blood pressure 128/52, heart rate 51 beats per minute, breathing 18 times per minute, temperature 98 degrees Fahrenheit. HEENT AND NECK: Exam within normal limits. CARDIOVASCULAR SYSTEM: Heart rate is regular in rate and rhythm. S1 and S2 normally audible. LUNGS: Clear to auscultation. ABDOMEN: Soft, nontender. No obvious organomegaly. Bowel sounds are present. EXTREMITIES: Without significant cyanosis or edema. Amputation of the distal right foot. CENTRAL NERVOUS SYSTEM: He has right hemiparesis, generalized weakness, expressive dysphasia and dysarthria. IMPRESSION: 1. The patient with late onset Alzheimer's type dementia and behavioral issues, evaluated by Psychiatry. 2. Right hemiparesis and ambulatory dysfunction. The patient waiting for rehabilitation. 3. Major depression, recurrent, being treated and followed. 4. Benign essential hypertension. Blood pressure is controlled. The patient remains on Coreg and lisinopril. 5. Cerebrovascular accident with right hemiparesis and disability for which he requires rehabilitation. 6. Coronary artery disease of the lummi vessels without any chest pain. 7. Type 2 diabetes mellitus with reasonably controlled blood sugars. FINA SILVA MD CM:PNTRANS 53 [phone] FINA SILVA MD 04/06/18 2336 interface
--- NOTE | ~2018-04-01 | DS ---
[place], [place] DISCHARGE SUMMARY [id number] #: [id number] ROOM: 505 DOCTOR: FINA SILVA MD BIRTHDATE: [birth year] DOS: 04/08/2018 DISCHARGE DIAGNOSES: 1. Ataxia improved with physical therapy. 2. Ambulatory dysfunction and right hemiplegia. The patient walks with the help of a walker. 3. Late onset Alzheimer's type dementia with behavioral issues. The patient seen by Psychiatry. 4. Major depression, recurrent. 5. Benign essential hypertension. 6. Cerebrovascular accident with right hemiparesis. 7. Distal right foot amputation. 8. Coronary artery disease of [place] vessels. 9. Type 2 diabetes mellitus. 10. 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 11. Cerebrovascular accident with dysphagia, expressive aphasia and right hemiparesis. 12. Chronic obstructive pulmonary disease. HOSPITAL COURSE: The patient presented when he was brought over for behavioral issues by his girlfriend and he had a mental status change with the patient being extremely angry, aggressive and throwing things. After admission, the patient did well and he calmed down. Psych consult was obtained and he did not qualify for transfer to Behavioral Health Unit according to Dr. Emery. Right hemiparesis and ambulatory dysfunction. The patient worked with physical therapy and is going for rehab now. Benign essential hypertension. Blood pressures are treated and controlled. They were monitored during the stay at the hospital. Type 2 diabetes mellitus. Blood sugar checked out to be normal. Benign essential hypertension, treated and controlled. Centrilobular emphysema with chronic shortness of breath, asymptomatic at present time. LABORATORY DATA: Urinalysis without significant signs of infection. CT of the head did not show any new acute abnormality. Normal serum electrolytes. Ammonia level is normal. DISCHARGE MANAGEMENT: Fluoxetine 20 mg a day, Plavix 75 mg a day, Coreg 25 mg b.i.d., lisinopril 10 mg a day. Mixed hyperlipidemia. The patient takes Lipitor, which will be continued. The patient going for rehabilitation to [facility]. [place], [place] DISCHARGE SUMMARY NAME: YONI NEGRON UNIT #: [id number] ROOM: 505 DOCTOR: FINA SILVA MD BIRTHDATE: [birth year] Dictation Ends Here. FINA SILVA MD CM:PETERSON [id number] FINA SILVA MD 04/09/18 0041 interface
--- NOTE | ~2018-04-01 | PR ---
[place], [place] PROGRESS NOTE NAME: YONI NEGRON UNIT #: [id number] ROOM: 505 DOCTOR: FINA SILVA MD BIRTHDATE: [birth year] DOS: 04/04/2018 SUBJECTIVE: The patient still with generalized weakness and ambulatory dysfunction. OBJECTIVE: VITAL SIGNS: Blood pressure 113/51, heart rate 55 beats per minute, breathing 18 times per minute, temperature 98.2 degrees Fahrenheit. GENERAL APPEARANCE: The patient is alert and oriented x 3, in no visible distress. HEENT AND NECK: Exam within normal limits. CARDIOVASCULAR SYSTEM: Heart rate is regular in rate and rhythm. S1 and S2 normally audible. LUNGS: Clear to auscultation. ABDOMEN: Soft, nontender. No obvious organomegaly. Bowel sounds are present. 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 IMPRESSION: 1. Late onset Alzheimer's type dementia and behavioral issues. The patient followed by Psychiatry, but did not qualify for Behavioral Health Unit. 2. Advance disability and ambulatory dysfunction. The patient working with physical therapy and waiting to be transferred to rehab facility. 3. Major depression, recurrent, treated with fluoxetine. 4. Benign essential hypertension. Blood pressures being monitored and controlled. The patient remains on Coreg and lisinopril. 5. Cerebrovascular accident with right hemiparesis and disability. The patient working with physical therapy and walking with help of a walking stick. 6. Coronary artery disease of the [place] vessels without any chest pain. 7. Type 2 diabetes mellitus. Blood sugars as stated normal. FINA SILVA MD CM:PNTRANS 1254 1330 FINA SILVA MD 04/04/18 1330 interface
--- NOTE | ~2018-04-01 | WRIGHTHP ---
[place], [place] PATIENT HISTORY AND PHYSICAL EXAM NAME: YONI NEGRON [facility] #: [id number] UNIT #: [id number] ROOM: [facility] DOCTOR: FINA SILVA MD BIRTHDATE: [birth year] DOS: 04/01/2018 HISTORY OF PRESENT ILLNESS: The patient is a 63-year-old gentleman with a past medical history of: 1. COPD. 2. CVA with dysphagia, expressive aphasia, right hemiparesis. 3. Type 2 diabetes mellitus. 4. Severe peripheral vascular disease, status post right mid tarsal amputation. 5. History of cancer of the throat, status post radiation treatment. 6. History of cancer of the liver, status post chemotherapy. 7. Benign essential hypertension. 8. History of late-onset Alzheimer's type dementia. The patient with advanced disability was seen in the Emergency Department, brought over by his girlfriend stating that he had a mental status change with being extremely angry, aggressive, and throwing things. According to the girlfriend, the patient was taking his medications and was seen by Dr. Green and sent to the Emergency Department. No chest pain, no shortness of breath, no other GI or urinary symptoms. The patient ambulates with the help of a walking stick. HOME MEDICATIONS: The patient takes fluoxetine, Plavix, Coreg, Lipitor, lisinopril. ALLERGIES: Known allergies to TYLENOL, ASPIRIN, CODEINE, DIPHENHYDRAMINE. PHYSICAL EXAMINATION: GENERAL: Alert, mostly oriented. Expressive dysphasia, in no visible distress. HEENT AND NECK: Extraocular movements are intact. Sclerae are anicteric. Oral mucosa is moist and clean. No obvious facial weakness. Neck is supple without any lymphadenopathy. No thyromegaly. No JVD. No carotid arterial bruits. LUNGS: Clear to auscultation. No wheezing. No rhonchi. CARDIOVASCULAR SYSTEM: Heart rate is regular in rate and rhythm. S1 and S2 normally audible. No significant murmur or any other abnormal cardiac sounds. ABDOMEN: Soft, nontender. No obvious organomegaly. Bowel sounds are present. No obvious herniation. EXTREMITIES: Without significant cyanosis or edema. Warm to touch. Distal right foot amputation. CENTRAL NERVOUS SYSTEM: Alert and oriented x 3. Cranial nerves II-XII are intact. Speech is normal. The patient is able to move all extremities. Normal muscle strength. Deep tendon reflexes are equal on both sides. Plantars were downgoing. Right hemiparesis. LABORATORY DATA: CT of the head with old left-sided infarct without any acute change. Urinalysis without significant signs of infection. Chest x-ray without acute abnormality. Normal serum electrolytes, bilirubin, liver enzymes. Ammonia level normal. No signs of infection on CBC: Hemoglobin 13.6, normal platelets. IMPRESSION AND PLAN: [place], [place] PATIENT HISTORY AND PHYSICAL EXAM [facility]: [id number] #: [id number] ROOM: [facility] DOCTOR: FINA SILVA MD BIRTHDATE: [birth year] 1. The patient with late-onset Alzheimer's type dementia with behavioral issues. I am consulting Dr. Emery to follow him and possibly take him to [facility] for further management for his anger management and behavioral issues with agitation. 2. Major depression, recurrent, being treated with fluoxetine. 3. Benign essential hypertension. The patient on Coreg and lisinopril, which is being continued. Blood pressures are staying normal. 4. Cerebrovascular accident with right hemiparesis. The patient to work with Physical Therapy. He walks with the help of a walking stick. 5. Centrilobular emphysema, presently asymptomatic. 6. Coronary artery disease of [place] vessels without chest pains. 7. Type 2 diabetes mellitus. Blood sugars to be followed. Blood sugar was normal at 90. FINA SILVA MD CM:HISPHYS:PATIENT HISTORY AND PHYSICAL EXAMINATION 1125 1147 FINA SILVA MD 04/02/18 1147 interface
--- NOTE | ~2018-04-01 | PR ---
[place], [place] PROGRESS NOTE [id number] UNIT #: [id number] ROOM: 505 DOCTOR: FINA SILVA MD BIRTHDATE: [birth year] DOS: 04/03/2018 SUBJECTIVE: The patient is feeling better, waiting to go to rehab. OBJECTIVE: VITAL SIGNS: Blood pressure 147/58, heart rate 56 beats per minute, breathing 16 times per minute, temperature 98 degrees Fahrenheit. GENERAL APPEARANCE: The patient is alert and oriented x 3, in no visible distress. HEENT AND NECK: Exam within normal limits. CARDIOVASCULAR SYSTEM: Heart rate is regular in rate and rhythm. S1 and S2 normally audible. LUNGS: Clear to auscultation. ABDOMEN: Soft, nontender. No obvious organomegaly. Bowel sounds are present. EXTREMITIES: Right hemiparesis and amputation of the distal right foot. IMPRESSION AND PLAN: 1. Late onset Alzheimer's type dementia and behavioral issues. The patient evaluated by Dr. Emery, the psychiatrist. 2. Advance disability. The patient is waiting for transfer to rehabilitation. 3. Major depression, recurrent, being treated with fluoxetine. 4. Benign essential hypertension. Blood pressure is being monitored and controlled. The patient remains on Coreg and lisinopril. 5. Cerebrovascular accident with right hemiparesis. The patient is working with Physical Therapy. He walks with the help of a walking stick. 6. Centrilobular emphysema, without any increasing shortness of breath. 7. Coronary artery disease of the [place] vessels, without chest pain. 8. Type 2 diabetes mellitus. Blood sugars have stayed normal. FINA SILVA MD CM:PNTRANS [phone] FINA SILVA MD 04/03/181936 interface
--- NOTE | ~2018-04-01 | PR ---
[place], [place] PROGRESS NOTE [id number] UN[facility] #: [id number] ROOM: 505 DOCTOR: FINA SILVA MD BIRTHDATE: [birth year] DOS: 04/05/2018 SUBJECTIVE: The patient continues to feel better. He is waiting for transfer to rehabilitation. OBJECTIVE: VITAL SIGNS: Blood pressure 134/54 diastolic, heart rate ranging between 55-61 beats per minute, breathing normally and afebrile. GENERAL APPEARANCE: The patient is alert and oriented x 3, in no visible distress. HEENT AND NECK: Exam within normal limits. CARDIOVASCULAR SYSTEM: Heart rate is regular in rate and rhythm. S1 and S2 normally audible. LUNGS: Clear to auscultation. ABDOMEN: Soft, nontender. No obvious organomegaly. Bowel sounds are present. EXTREMITIES: Right hemiparesis and amputation of the distal right foot. CENTRAL NERVOUS SYSTEM: Generalized weakness. Otherwise, standard exam and the patient also has expressive dysphasia and dysarthria. IMPRESSIONS AND PLAN: 1. The patient has late onset of Alzheimer's type dementia with behavioral issues, evaluated by Psychiatry. 2. Advanced adult failure to thrive and ambulatory dysfunction. The patient is working with physical therapy. The patient walks with a walker. 3. Major depression, recurrent, treated with fluoxetine. 4. Type 2 diabetes mellitus. Blood sugars reasonably control. 5. Coronary artery disease of [place] vessels without chest pain. 6. Cerebrovascular accident with right hemiparesis and disability. The patient is working with physical therapy. He used to walk with a walking stick. 7. Benign essential hypertension, treated and controlled. The patient remains on Coreg and lisinopril. FINA SILVA MD CM:PNTRANS 1515 23 FINA SILVA MD 04/05/182224 interface
[2018-04-01 14:02] VITALS: BP 155/49
[2018-04-01 15:21] LABS: BASO % 0.5 % (0.0-1.0); EOS # 0.2 10*3/uL (0.0-0.4); EOS % 2.1 % (1.0-4.0); HEMATOCRIT 42.2 % (42.0-52.0); HEMOGLOBIN 13.6 g/dl (14.0-18.0); LYMPH # 1.3 10*3/uL (1.3-4.4); LYMPH % 17.5 % (27.0-41.0); MEAN CELL VOLUME 90.9 fl (80.0-94.0); MEAN CORPUSCULAR HGB 29.3 pg (27.0-31.0); MEAN CORPUSCULAR HGB CONC 32.2 g/dl (33.0-37.0); MEAN PLATELET VOLUME 10.5 fl (9.6-12.3); MONO # 0.7 10*3/uL (0.1-1.0); MONO % 9.6 % (3.0-9.0); NEUT # 5.3 10*3/uL (2.3-7.9); PLATELET COUNT AUTOMATED 212 10*3/uL (130-400); RED BLOOD COUNT 4.64 10*6/uL (4.50-5.90); RED CELL DISTRI WIDTH 13.5 % (0-14.5); WHITE BLOOD COUNT 7.5 10*3/uL (4.8-10.8)
[2018-04-01 15:40] LABS: ALBUMIN 3.5 gm/dl (3.1-4.5); ALKALINE PHOSPHATASE 72 U/L (45-117); BUN 10 mg/dl (7-24); CHLORIDE 105 mmol/L (98-107); CREATININE 0.99 mg/dL (0.70-1.30); POTASSIUM 4.2 mmol/L (3.5-5.1); SGOT/AST 20 IU/L (3-35); SGPT/ALT 20 U/L (12-78); SODIUM 137 mmol/L (136-145); TOTAL PROTEIN 7.4 gm/dL (6.4-8.2)
[2018-04-01 16:58] VITALS: BP 188/70
[2018-04-01 17:14] VITALS: BP 170/63
[2018-04-01 18:20] VITALS: BP 162/69
[2018-04-01 20:00] VITALS: BP 146/43
[2018-04-01 20:46] LABS: BILIRUBIN NEGATIVE (NEGATIVE); BLOOD NEGATIVE (NEGATIVE); CLARITY SL CLOUDY (CLEAR); COLOR YELLOW (YELLOW); GLUCOSE NEGATIVE (NEGATIVE); KETONE NEGATIVE (NEGATIVE); LEUKO ESTERASE NEGATIVE (NEGATIVE); NITRITE NEGATIVE (NEGATIVE); PH 5.5 (5.0-9.0); SPECIFIC GRAVITY >= 1.030 (1.005-1.030); UROBILINOGEN 0.2 E.U./dl (0.2-1.0)
[2018-04-01 20:56] LABS: BACTERIA 1+; MUCOUS TRACE; RBC 0-2 rbc/hpf (0-2)
[2018-04-02] VITALS: BP 149/38
[2018-04-02 08:00] VITALS: BP 143/46
[2018-04-02 12:00] VITALS: BP 150/51
[2018-04-02 16:00] VITALS: BP 161/55
[2018-04-03] VITALS: BP 146/60
[2018-04-03 08:00] VITALS: BP 148/48
[2018-04-03 16:00] VITALS: BP 147/58
[2018-04-03 20:00] VITALS: BP 145/53
[2018-04-04] VITALS: BP 145/47
[2018-04-04 08:00] VITALS: BP 124/63
[2018-04-04 12:00] VITALS: BP 113/51
[2018-04-04 16:00] VITALS: BP 123/57
[2018-04-04 20:00] VITALS: BP 117/43
[2018-04-05] VITALS: BP 144/46
[2018-04-05 08:00] VITALS: BP 134/54
[2018-04-05 12:00] VITALS: BP 100/56
[2018-04-05 16:00] VITALS: BP 115/51
[2018-04-05 20:00] VITALS: BP 102/50
[2018-04-06] VITALS: BP 139/54
[2018-04-06 08:00] VITALS: BP 125/68
[2018-04-06 12:00] VITALS: BP 130/72
[2018-04-06 16:00] VITALS: BP 128/52
[2018-04-06 21:14] VITALS: BP 125/39
[2018-04-06 21:15] VITALS: BP 122/40
[2018-04-07] VITALS: BP 148/37
[2018-04-07 08:00] VITALS: BP 136/51
[2018-04-07 12:00] VITALS: BP 110/50
[2018-04-07 16:00] VITALS: BP 152/51
[2018-04-07 20:00] VITALS: BP 140/48
[2018-04-08] VITALS: BP 146/45
[2018-04-08 08:00] VITALS: BP 145/83
[2018-04-08 12:00] VITALS: BP 129/79
[2018-04-08 16:00] VITALS: BP 135/48
== END 2018-04-08 20:37 | disposition other institution (70) | DRG 57 ==
LOC: ED 13:59 → 5E 16:28 → EDHOLD 16:28 → 5E 17:52
PROVIDERS: Nurse Practitioner
DX: G30.1 Alzheimer's disease with late onset (principal); F02.81 Dementia in other diseases classified elsewhere, unspecified severity, with behavioral disturbance; I69.351 Hemiplegia and hemiparesis following cerebral infarction affecting right dominant side; F33.9 Major depressive disorder, recurrent, unspecified; I25.10 Atherosclerotic heart disease of native coronary artery without angina pectoris; R13.10 Dysphagia, unspecified; I10 Essential (primary) hypertension; R62.7 Adult failure to thrive; E11.51 Type 2 diabetes mellitus with diabetic peripheral angiopathy without gangrene; J43.2 Centrilobular emphysema; Z89.431 Acquired absence of right foot; I69.320 Aphasia following cerebral infarction; I69.391 Dysphagia following cerebral infarction; Z92.3 Personal history of irradiation; Z85.89 Personal history of malignant neoplasm of other organs and systems; Z85.05 Personal history of malignant neoplasm of liver; Z92.21 Personal history of antineoplastic chemotherapy; Z88.8 Allergy status to other drugs, medicaments and biological substances; Z88.6 Allergy status to analgesic agent; Z88.5 Allergy status to narcotic agent; Z95.1 Presence of aortocoronary bypass graft; Z89.412 Acquired absence of left great toe; Z87.891 Personal history of nicotine dependence

== ENCOUNTER → 2018-07-17 | Outpatient (CLI) | payer MEDICARE ==
[~2018-07-17] MED LIST changes: +METFORMIN HCL500 M3 PO
== END | disposition home or self-care (01) ==
LOC: WOUNDCARE 00:42
DX: E11.621 Type 2 diabetes mellitus with foot ulcer (principal); L97.412 Non-pressure chronic ulcer of right heel and midfoot with fat layer exposed; L97.511 Non-pressure chronic ulcer of other part of right foot limited to breakdown of skin; E11.622 Type 2 diabetes mellitus with other skin ulcer; L97.811 Non-pressure chronic ulcer of other part of right lower leg limited to breakdown of skin; E11.51 Type 2 diabetes mellitus with diabetic peripheral angiopathy without gangrene; E11.40 Type 2 diabetes mellitus with diabetic neuropathy, unspecified; G30.9 Alzheimer's disease, unspecified; I10 Essential (primary) hypertension; J44.9 Chronic obstructive pulmonary disease, unspecified; G81.91 Hemiplegia, unspecified affecting right dominant side; F02.80 Dementia in other diseases classified elsewhere, unspecified severity, without behavioral disturbance, psychotic disturbance, mood disturbance, and anxiety; F32.9 Major depressive disorder, single episode, unspecified; F12.10 Cannabis abuse, uncomplicated; Z87.891 Personal history of nicotine dependence; Z95.1 Presence of aortocoronary bypass graft; Z86.73 Personal history of transient ischemic attack (TIA), and cerebral infarction without residual deficits

== ENCOUNTER → 2018-07-22 | Outpatient (CLI) | payer MEDICARE | END | disposition home or self-care (01) | LOC: US 02:03 | DX: E11.621 Type 2 diabetes mellitus with foot ulcer (principal); L97.412 Non-pressure chronic ulcer of right heel and midfoot with fat layer exposed; E11.622 Type 2 diabetes mellitus with other skin ulcer; L97.811 Non-pressure chronic ulcer of other part of right lower leg limited to breakdown of skin; E11.40 Type 2 diabetes mellitus with diabetic neuropathy, unspecified; E11.51 Type 2 diabetes mellitus with diabetic peripheral angiopathy without gangrene; I10 Essential (primary) hypertension; J44.9 Chronic obstructive pulmonary disease, unspecified; G30.9 Alzheimer's disease, unspecified; F02.80 Dementia in other diseases classified elsewhere, unspecified severity, without behavioral disturbance, psychotic disturbance, mood disturbance, and anxiety; Z87.891 Personal history of nicotine dependence ==

== ENCOUNTER → 2018-11-04 | Outpatient (CLI) | payer OTHER ==
[2018-11-04 11:07] LABS: HEMATOCRIT 40.3 % (42.0-52.0); HEMOGLOBIN 12.7 g/dl (14.0-18.0); MEAN CELL VOLUME 89.6 fl (80.0-94.0); MEAN CORPUSCULAR HGB 28.2 pg (27.0-31.0); MEAN CORPUSCULAR HGB CONC 31.5 g/dl (33.0-37.0); MEAN PLATELET VOLUME 10.3 fl (9.6-12.3); RED BLOOD COUNT 4.5 10*6/uL (4.50-5.90); RED CELL DISTRI WIDTH 13.6 % (0-14.5); WHITE BLOOD COUNT 6.1 10*3/uL (4.8-10.8)
[2018-11-04 11:30] LABS: ALBUMIN 3.8 gm/dl (3.1-4.5); ALKALINE PHOSPHATASE 91 U/L (45-117); BUN 20 mg/dl (7-24); CHLORIDE 105 mmol/L (98-107); CHOLESTEROL 132 mg/dL (<200); CPK 133 U/L (39-308); CREATININE 1.25 mg/dL (0.70-1.30); HDL CHOLESTEROL 38 mg/dl (40-60); LDL CHOLESTEROL 72 mg/dL (9-159); POTASSIUM 4.4 mmol/L (3.5-5.1); SGOT/AST 31 IU/L (3-35); SGPT/ALT 32 U/L (12-78); SODIUM 139 mmol/L (136-145); TOTAL PROTEIN 8.2 gm/dL (6.4-8.2); TRIGLYCERIDES 112 mg/dl (<150); VLDL CHOLESTEROL 22 mg/dL (6-40)
== END | disposition home or self-care (01) ==
LOC: LAB 10:35
PROVIDERS: Family Medicine
DX: E78.00 Pure hypercholesterolemia, unspecified (principal); E74.9 Disorder of carbohydrate metabolism, unspecified; Z79.899 Other long term (current) drug therapy; F41.1 Generalized anxiety disorder; E74.00 Glycogen storage disease, unspecified; E55.9 Vitamin D deficiency, unspecified

== ENCOUNTER 2018-12-11 12:06 | Inpatient (IN) | payer OTHER ==
[~2018-12-11] VITALS: Ht 187.9 cm; Wt 84.4 kg
--- NOTE | ~2018-12-11 | DS ---
[place], [place] DISCHARGE SUMMARY NAME: YONI NEGRON [facility] #: [id number] UNIT #: [id number] ROOM: 506 DOCTOR: LISA BATES MD BIRTHDATE: [birth year] DOS: 12/14/2018 DIAGNOSES: 1. Left lower lobe pneumonia with consolidation. 2. History of cerebrovascular accident. 3. History of Alzheimer's dementia, early onset. 4. Chronic obstructive pulmonary disease. 5. Type 2 diabetes mellitus. 6. Benign hypertension. HOSPITAL COURSE: The patient comes in with complaints of shortness of breath, cough. Please refer to H and P dictated by Dr. Gross for further details. He was diagnosed with left lower lobe pneumonia, was admitted, possibly gram negative. He was placed on azithromycin and Rocephin. With IV antibiotics, the patient has improved and is not having any new complaints. CT of the chest continued to show pneumonia with consolidation. Sputum culture shows no bacterial growth. The patient has not had any complaints. He is oxygenating well on room air, is in no respiratory distress. The plan therefore is to discharge him to home on p.o. antibiotics. DISCHARGE MEDICATIONS: Cipro 500 mg twice daily for 7 days, fluoxetine 10 daily, Coreg 25 b.i.d., atorvastatin 40 daily, felodipine 10 daily, metformin 500 daily. LISA BATES MD CM:DISCHARG 0957 LISA BATES MD 12/14/18 0958 interface
--- NOTE | ~2018-12-11 | EKG ---
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[id number] Requested By: IBRAHIMA ANAND Order Number: [id number] Reading MD: Sharona Ayers MD Measurements Intervals [place] Rate: 61 P: 34 AK: 181 QRS: -36 QRSD: 101 T: 59 QT: 416 QTc: 419 Interpretive Statements Sinus rhythm Multiple ventricular premature complexes Left axis deviation Baseline wander in lead(s) V1 Compared to ECG 01/13/2018 23:46:43 Left-axis deviation now present Sinus arrhythmia no longer present Left anterior fascicular block no longer present T-wave abnormality no longer present Electronically Signed On 12-12-2018 11:31:06 PDT by Sharona Ayers MD CM:EKGRPT:ELECTROCARDIOGRAM REPORT 1232 1131 IBRAHIMA KOROMA DRAFT REPORT IBRAHIMA ANAND DO
--- NOTE | ~2018-12-11 | WRIGHTHP ---
[place], [place] PATIENT HISTORY AND PHYSICAL EXAM NAME: YONI NEGRON [facility] #: [id number] UNIT #: [id number] ROOM: 506 DOCTOR: FINA SILVA MD BIRTHDATE: [birth year] DOS: 12/11/2018 HISTORY OF PRESENT ILLNESS: 1. The patient has a past medical history of right below knee amputation and left big toe amputation. 2. Chronic obstructive pulmonary disease. 3. Right hemiparesis. 4. CVA with right hemiparesis, expressive aphasia. 5. Severe peripheral arterial disease. 6. Type 2 diabetes mellitus. 7. Coronary artery disease of [place] vessels. 8. Benign essential hypertension. 9. Major depression, recurrent, moderate. 10. Late onset Alzheimer's type dementia with behavioral issues. 11. Ambulatory dysfunction. The patient presented to the Emergency Department with increased shortness of breath, some chest congestion and was found to have pneumonic infiltrates in the left lower lung and he was admitted for further management. REVIEW OF SYSTEMS: RESPIRATORY: Some increasing shortness of breath, chest congestion. GASTROINTESTINAL: No nausea, vomiting, diarrhea or constipation. CARDIOVASCULAR: No chest pains or palpitations. FAMILY HISTORY: Noncontributory. HOME MEDICATIONS: Fluoxetine, felodipine, Coreg, metformin. ALLERGIES: KNOWN ALLERGIES TO CODEINE, ASPIRIN, TYLENOL, BENADRYL. PHYSICAL EXAMINATION: GENERAL: Alert, appears oriented, aphasic. HEENT AND NECK: Extraocular movements are intact. Sclerae are anicteric. Oral mucosa is moist and clean. No obvious facial weakness. Neck is supple without any lymphadenopathy. No thyromegaly. No JVD. No carotid arterial bruits. LUNGS: Clear to auscultation. No wheezing. No rhonchi. CARDIOVASCULAR SYSTEM: Heart rate is regular in rate and rhythm. S1 and S2 normally audible. No significant murmur or any other abnormal cardiac sounds. ABDOMEN: Soft, nontender. No obvious organomegaly. Bowel sounds are present. No obvious herniation. EXTREMITIES: Right below knee amputation and left great toe amputation. CENTRAL NERVOUS SYSTEM: Alert and oriented x 3. Cranial nerves II-XII are intact. Speech is normal. The patient is able to move all extremities. Normal muscle strength. Deep tendon reflexes are equal on both sides. Plantars were downgoing. LABORATORY DATA: Chest x-ray showing left lower lobe pneumonia. Normal serum electrolytes. No leukocytosis. IMPRESSION: [place], [place] PATIENT HISTORY AND PHYSICAL EXAM [facility]: [id number] #: [id number] ROOM: [facility] DOCTOR: FINA SILVA MD BIRTHDATE: [birth year] 1. The patient with left lower lobe pneumonia to be treated with azithromycin and Rocephin. Blood counts to be monitored. 2. Advanced physical disability. We will take fall and bedsore precautions and he will work with physical therapy and I will use an air mattress. 3. Major depression, recurrent, moderate, treated and controlled with fluoxetine. 4. Benign essential hypertension. The patient remains on Coreg. Blood pressure is to be monitored. 5. Type 2 diabetes mellitus to be treated with metformin. The patient remained on no concentrated sweet diet. 6. Ambulatory dysfunction. The patient worked with physical therapy. FINA SILVA MD CM:HISPHYS:PATIENT HISTORY AND PHYSICAL EXAMINATION 45 19 FINA SILVA MD 12/11/182019 interface
--- NOTE | ~2018-12-11 | PR ---
[place], [place] PROGRESS NOTE NAME: YONI NEGRON [facility] #: [id number] UNIT #: [id number] ROOM: 506 DOCTOR: FINA SILVA MD BIRTHDATE: [birth year] DOS: 12/12/2018 SUBJECTIVE: The patient is feeling better, but he is complaining of pain in the left knee. OBJECTIVE: VITAL SIGNS: Blood pressure 111/48, heart rate of 60 beats per minute, breathing 18 times per minute, temperature 98.1 degrees Fahrenheit. GENERAL APPEARANCE: The patient is alert and oriented x 3, in no visible distress. HEENT AND NECK: Exam within normal limits. CARDIOVASCULAR SYSTEM: Heart rate is regular in rate and rhythm. S1 and S2 normally audible. LUNGS: Clear to auscultation. ABDOMEN: Soft, nontender. No obvious organomegaly. Bowel sounds are present. EXTREMITIES: Without significant cyanosis or edema. Right below knee amputation and generalized weakness. IMPRESSION: 1. Acute over chronic left knee pain and osteoarthritis to be treated with lidocaine gel. 2. Left lower lobe pneumonia, being treated with azithromycin and Rocephin. I will repeat a chest x-ray tomorrow. His breathing and congestion is improving. 3. Advanced physical disability. The patient working in physical therapy and we are taking bedsore and fall precautions. 4. Major depression, recurrent, moderate, treated and controlled with fluoxetine. 5. Benign essential hypertension. The patient is on Coreg. Blood pressure monitored and treated. 6. Type 2 diabetes mellitus, treated with metformin. Blood sugars will be monitored. 2. Ambulatory dysfunction. The patient on physical therapy. FINA SILVA MD CM:PNTRANS 1302 2320 FINA SILVA MD 12/12/18 2320 interface
--- NOTE | ~2018-12-11 | PR ---
[place], [place] PROGRESS NOTE NAME: YONI NEGRON [facility] #: [id number] UNIT #: [id number] ROOM: 506 DOCTOR: LISA BATES MD BIRTHDATE: [birth year] DOS: 12/13/2018 SUBJECTIVE: The patient is doing fine without any complaints, but he does have a moist sounding cough. OBJECTIVE: VITAL SIGNS: Graphic trend shows a pressure 131/75, pulse of 76, respirations 18, temperature 97.8. LUNGS: Diminished breath sounds. HEART: Regular. ABDOMEN: Obese. EXTREMITIES: Below-knee amputation, right. Amputation of the big toe on the left. LABORATORY DATA: White cell count is normal at 7.8. ASSESSMENT AND PLAN: 1. Left lower lobe pneumonia, possible gram negative. The patient has a very moist sounding cough. No chest x-ray has been ordered since admission. We will do CT of the chest this morning to see the extent of pneumonia. 2. History of cerebrovascular accident with Alzheimer's dementia, not able to give me much history. Oxygen saturation seems to be maintaining. 3. Benign hypertension, controlled. LISA BATES MD CM:PNTRANS 0851 1124 LISA BATES MD 12/13/18 1124 interface
--- NOTE | ~2018-12-11 | PR ---
[place], [place] PROGRESS NOTE NAME: [facility] [id number] UNIT #: [id number] ROOM: 506 DOCTOR: LISA BATES MD BIRTHDATE: [birth year] DOS: 12/14/2018 SUBJECTIVE: The patient is sitting up in bed, watching TV, in no distress. Does not use any oxygen. OBJECTIVE: VITAL SIGNS: Blood pressure is 120/64, pulse of 50, respirations 16, temperature 97.9. LUNGS: Clear. HEART: Regular. ABDOMEN: Obese, soft. EXTREMITIES: Without any edema. LABORATORY DATA: Sputum culture shows normal jozef. CT of the chest shows left lower lobe with consolidation. ASSESSMENT AND PLAN: 1. Left lower lobe pneumonia with consolidation on IV antibiotics. White cell count has normalized. Sputum culture is now showing normal jozef. The patient is stable, is doing well on room air. The plan is to discharge to home today. 2. Alzheimer's dementia, late onset with history of a cerebrovascular accident. Continue home medications. LISA BATES MD CM:PNTRANS 0910 1031 LISA BATES MD 12/14/18 1031 interface
[2018-12-11 12:06] VITALS: BP 117/55
[~2018-12-11 12:06] MED LIST changes: -METFORMIN HCL500 M3 PO
[2018-12-11 12:29] LABS: BASO % 0.2 % (0.0-1.0); EOS # 0.1 10*3/uL (0.0-0.4); EOS % 1.1 % (1.0-4.0); HEMATOCRIT 39.2 % (42.0-52.0); HEMOGLOBIN 12.5 g/dl (14.0-18.0); LYMPH # 1.6 10*3/uL (1.3-4.4); LYMPH % 18.3 % (27.0-41.0); MEAN CELL VOLUME 86.3 fl (80.0-94.0); MEAN CORPUSCULAR HGB 27.5 pg (27.0-31.0); MEAN CORPUSCULAR HGB CONC 31.9 g/dl (33.0-37.0); MEAN PLATELET VOLUME 10.4 fl (9.6-12.3); MONO # 0.9 10*3/uL (0.1-1.0); MONO % 10.6 % (3.0-9.0); NEUT # 6.2 10*3/uL (2.3-7.9); NEUT % 69.5 % (47.0-73.0); PLATELET COUNT AUTOMATED 245 10*3/uL (130-400); RED BLOOD COUNT 4.54 10*6/uL (4.50-5.90); RED CELL DISTRI WIDTH 13.9 % (0-14.5); WHITE BLOOD COUNT 8.9 10*3/uL (4.8-10.8)
[2018-12-11 12:45] LABS: ALBUMIN 3.1 gm/dl (3.1-4.5); ALKALINE PHOSPHATASE 71 U/L (45-117); BUN 20 mg/dl (7-24); CHLORIDE 105 mmol/L (98-107); LIPASE 121 U/L (73-393); POTASSIUM 4.2 mmol/L (3.5-5.1); SGOT/AST 13 IU/L (3-35); SGPT/ALT 17 U/L (12-78); SODIUM 135 mmol/L (136-145); TOTAL PROTEIN 7.7 gm/dL (6.4-8.2)
[2018-12-11 12:47] LABS: TROPONIN I < 0.015 ng/ml (<0.045)
[2018-12-11 13:44] VITALS: BP 101/41
[2018-12-11 15:17] VITALS: BP 101/62
--- NOTE | 2018-12-11 15:30 | NUR ---
A 63, admitted to 5E, under the services of Dr. RICARDO BEAUCHAMP,FINA Reese with a diagnosis of PNEUMONIA. Chief complaint is COUGH/CONGESTION. Patient arrived via stretcher from ER. Monitor applied. Initial assessment completed. Vital signs taken and recorded. DR. RICARDO BEAUCHAMP,FINA Reese notified of admission to the unit. Orders received. See assessment for past medical history, medications and allergies. Patient and/or family oriented to unit. [address] visitation policy reviewed. Clothing/patient valuable form completed. MAHESH NOLASCO
[2018-12-11 16:00] VITALS: BP 119/48
[2018-12-11] MEDS ORDERED: FELODIPINE10 MG PO (16:35)
[2018-12-11] MEDS ORDERED: METFORMIN HCL500 M3 PO (16:35)
--- NOTE | 2018-12-11 16:35 | NUR ---
[facility] NOTIFIED.
--- NOTE | 2018-12-11 16:43 | NUR ---
CALLED DR SILVA FOR ORDERS. HE STATES HE WILL BE IN SOON AND WILL ENTER THEM AT THAT TIME, DIETARY ORDERS GIVEN.
[2018-12-11 20:00] VITALS: BP 137/85
[2018-12-12] VITALS: BP 92/47
[2018-12-12 06:20] LABS: BUN 18 mg/dl (7-24); CHLORIDE 106 mmol/L (98-107); CREATININE 0.92 mg/dL (0.70-1.30); SODIUM 136 mmol/L (136-145)
[2018-12-12 06:22] LABS: BASO % 0.4 % (0.0-1.0); EOS # 0.1 10*3/uL (0.0-0.4); EOS % 1.7 % (1.0-4.0); HEMATOCRIT 36.4 % (42.0-52.0); HEMOGLOBIN 11.3 g/dl (14.0-18.0); LYMPH # 1.7 10*3/uL (1.3-4.4); LYMPH % 19.9 % (27.0-41.0); MEAN CELL VOLUME 86.3 fl (80.0-94.0); MEAN CORPUSCULAR HGB 26.8 pg (27.0-31.0); MEAN PLATELET VOLUME 11.6 fl (9.6-12.3); MONO % 11.5 % (3.0-9.0); NEUT # 5.6 10*3/uL (2.3-7.9); NEUT % 66.1 % (47.0-73.0); PLATELET COUNT AUTOMATED 252 10*3/uL (130-400); RED BLOOD COUNT 4.22 10*6/uL (4.50-5.90); RED CELL DISTRI WIDTH 13.7 % (0-14.5); WHITE BLOOD COUNT 8.4 10*3/uL (4.8-10.8)
[2018-12-12 08:00] VITALS: BP 111/48
--- NOTE | 2018-12-12 08:22 | NUR ---
PHYSICAL THERAPY Nursing screen received and chart reviewed. Physical therapy order received. Thank you. Vicki Fitch,PT,DPT.
--- NOTE | 2018-12-12 09:00 | NUR ---
[employer] in to talk to patient. Patient states lives at home with his . There are 4 steps in the home. Physician: Dr. Jose Green [facility]: [facility] Home health services: none Patient's level of ADLs: INDEPENDENT Patient has working utilities: yes DME: none Follow-up physician's appointment after d/c: he prefers to make his own follow up appt after discharge Does patient want to access PORTAL?: no Discharge plan discussed with patient. He lives at home with his . He is independent in his ADLs and ambulation. Discussed home health care services and he denies any home needs at this time. When medically stable he will be discharged to home. will transport on discharge. RANDI GARDNER
[2018-12-12 12:00] VITALS: BP 1117/41
--- NOTE | 2018-12-12 15:55 | NUR ---
Nursing screen received and occupational therapy screen completed. Patient was admitted with shortness of breath. If patient should have a new decline in ADL or safety, please refer to OT for and evaluation and recommendations. Thank you. Millie Ballard OTR/L
[2018-12-12 16:00] VITALS: BP 124/61
[2018-12-12 20:00] VITALS: BP 130/89
[2018-12-13] VITALS: BP 124/45
--- NOTE | 2018-12-13 04:54 | NUR ---
24 HR chart check completed.
[2018-12-13 06:14] LABS: BASO % 0.3 % (0.0-1.0); EOS # 0.2 10*3/uL (0.0-0.4); EOS % 2.3 % (1.0-4.0); HEMATOCRIT 38.4 % (42.0-52.0); HEMOGLOBIN 12.1 g/dl (14.0-18.0); LYMPH # 1.4 10*3/uL (1.3-4.4); LYMPH % 18.4 % (27.0-41.0); MEAN CELL VOLUME 85.7 fl (80.0-94.0); MEAN CORPUSCULAR HGB CONC 31.5 g/dl (33.0-37.0); MONO # 0.7 10*3/uL (0.1-1.0); MONO % 9.5 % (3.0-9.0); NEUT # 5.4 10*3/uL (2.3-7.9); NEUT % 69.4 % (47.0-73.0); PLATELET COUNT AUTOMATED 281 10*3/uL (130-400); RED BLOOD COUNT 4.48 10*6/uL (4.50-5.90); RED CELL DISTRI WIDTH 13.7 % (0-14.5); WHITE BLOOD COUNT 7.8 10*3/uL (4.8-10.8)
[2018-12-13 08:00] VITALS: BP 131/75
--- NOTE | 2018-12-13 08:43 | NUR ---
MEDICATED WITH PRN PO TYLENOL FOR LEFT KNEE PAIN.
[2018-12-13 12:00] VITALS: BP 130/62
[2018-12-13 16:00] VITALS: BP 130/64
[2018-12-13 20:00] VITALS: BP 121/63
[2018-12-14] VITALS: BP 113/66
--- NOTE | 2018-12-14 00:40 | NUR ---
24 HR chart check completed.
[2018-12-14 05:53] LABS: BASO % 0.4 % (0.0-1.0); EOS # 0.2 10*3/uL (0.0-0.4); HEMATOCRIT 37.9 % (42.0-52.0); HEMOGLOBIN 12.1 g/dl (14.0-18.0); LYMPH # 1.8 10*3/uL (1.3-4.4); LYMPH % 23.1 % (27.0-41.0); MEAN CELL VOLUME 84.4 fl (80.0-94.0); MEAN CORPUSCULAR HGB 26.9 pg (27.0-31.0); MEAN CORPUSCULAR HGB CONC 31.9 g/dl (33.0-37.0); MEAN PLATELET VOLUME 11.3 fl (9.6-12.3); MONO # 0.7 10*3/uL (0.1-1.0); NEUT # 5.1 10*3/uL (2.3-7.9); NEUT % 64.2 % (47.0-73.0); PLATELET COUNT AUTOMATED 274 10*3/uL (130-400); RED BLOOD COUNT 4.49 10*6/uL (4.50-5.90); RED CELL DISTRI WIDTH 13.9 % (0-14.5); WHITE BLOOD COUNT 7.9 10*3/uL (4.8-10.8)
[2018-12-14 08:00] VITALS: BP 120/64
--- NOTE | 2018-12-14 08:20 | NUR ---
MEDICATED WITH PRN PO TYLENOL FOR C/O LEFT KNEE PAIN.
[2018-12-14] MEDS ORDERED: CIPRO500 MG PO (09:01)
--- NOTE | 2018-12-14 09:56 | NUR ---
Discharge instructions reviewed with patient. Patient receptive and verbalizes understanding. Follow-up care arranged. Written instructions given to patient. HE IS AWAITING RIDE HOME WITH , WHICH WILL BE AFTER 6PM. SOPHIE ARORA
[2018-12-14 12:00] VITALS: BP 109/56
--- NOTE | 2018-12-14 15:29 | NUR ---
MEDICATED WITH PRN PO TYLENOL FOR LEFT KNEE PAIN.
--- NOTE | 2018-12-14 16:15 | NUR ---
PRN PO TYLENOL WAS EFFECTIVE, PER PATIENT. STATES PAIN DOWN TO 8 FROM 10 ON PAIN SCALE.
--- NOTE | 2018-12-14 17:43 | NUR ---
PATIENT DISCHARGED TO [facility] BY WHEELCHAIR, ACCOMPANIED BY [facility], FOR TRANSPORT HOME BY PRIVATE VEHICLE WITH HIS .
== END 2018-12-14 17:43 | disposition home or self-care (01) | DRG 178 ==
LOC: ED 12:06 → 5E 13:56 → EDHOLD 13:56 → 5E 14:16
PROVIDERS: Emergency Medicine; ADMIT Internal Medicine
DX: J15.6 Pneumonia due to other Gram-negative bacteria (principal); J44.0 Chronic obstructive pulmonary disease with (acute) lower respiratory infection; I69.351 Hemiplegia and hemiparesis following cerebral infarction affecting right dominant side; F33.1 Major depressive disorder, recurrent, moderate; I10 Essential (primary) hypertension; K21.9 Gastro-esophageal reflux disease without esophagitis; G30.1 Alzheimer's disease with late onset; E78.5 Hyperlipidemia, unspecified; M25.562 Pain in left knee; M17.12 Unilateral primary osteoarthritis, left knee; E11.51 Type 2 diabetes mellitus with diabetic peripheral angiopathy without gangrene; F02.80 Dementia in other diseases classified elsewhere, unspecified severity, without behavioral disturbance, psychotic disturbance, mood disturbance, and anxiety; Z89.611 Acquired absence of right leg above knee; Z88.6 Allergy status to analgesic agent; Z88.5 Allergy status to narcotic agent; Z88.8 Allergy status to other drugs, medicaments and biological substances; Z91.81 History of falling; Z87.01 Personal history of pneumonia (recurrent); Z95.1 Presence of aortocoronary bypass graft; Z89.412 Acquired absence of left great toe; Z87.891 Personal history of nicotine dependence; Z85.528 Personal history of other malignant neoplasm of kidney; Z85.21 Personal history of malignant neoplasm of larynx

== ENCOUNTER 2019-05-11 17:52 | Emergency (ER) | payer OTHER ==
[~2019-05-11] VITALS: Ht 187.9 cm; Wt 85.3 kg
[~2019-05-11 17:52] MED LIST changes: +METFORMIN HCL500 M3 PO
[2019-05-11 18:28] LABS: BASO % 0.3 % (0.0-1.0); EOS # 0.2 10*3/uL (0.0-0.4); EOS % 2.2 % (1.0-4.0); HEMATOCRIT 41.5 % (42.0-52.0); HEMOGLOBIN 13.1 g/dl (14.0-18.0); LYMPH % 19.2 % (27.0-41.0); MEAN CELL VOLUME 89.2 fl (80.0-94.0); MEAN CORPUSCULAR HGB 28.2 pg (27.0-31.0); MEAN CORPUSCULAR HGB CONC 31.6 g/dl (33.0-37.0); MEAN PLATELET VOLUME 9.9 fl (9.6-12.3); MONO % 9.8 % (3.0-9.0); NEUT # 6.9 10*3/uL (2.3-7.9); NEUT % 68.1 % (47.0-73.0); PLATELET COUNT AUTOMATED 277 10*3/uL (130-400); RED BLOOD COUNT 4.65 10*6/uL (4.50-5.90); RED CELL DISTRI WIDTH 14.4 % (0-14.5); WHITE BLOOD COUNT 10.2 10*3/uL (4.8-10.8)
[2019-05-11 18:54] LABS: ALKALINE PHOSPHATASE 67 U/L (45-117); BUN 16 mg/dl (7-24); CHLORIDE 105 mmol/L (98-107); CREATININE 1.16 mg/dL (0.70-1.30); POTASSIUM 4.6 mmol/L (3.5-5.1); SGOT/AST 17 IU/L (3-35); SGPT/ALT 29 U/L (12-78); SODIUM 138 mmol/L (136-145); TOTAL PROTEIN 7.2 gm/dL (6.4-8.2)
[2019-05-11 18:55] LABS: TROPONIN I < 0.015 ng/ml (<0.045)
== END 2019-05-11 20:30 | disposition home or self-care (01) ==
LOC: ED 17:52
PROVIDERS: Emergency Medicine
DX: J98.01 Acute bronchospasm (principal); J18.9 Pneumonia, unspecified organism; J44.9 Chronic obstructive pulmonary disease, unspecified; E11.9 Type 2 diabetes mellitus without complications; E78.00 Pure hypercholesterolemia, unspecified; K21.9 Gastro-esophageal reflux disease without esophagitis; I10 Essential (primary) hypertension; I73.9 Peripheral vascular disease, unspecified; Z86.73 Personal history of transient ischemic attack (TIA), and cerebral infarction without residual deficits; Z88.6 Allergy status to analgesic agent; Z88.5 Allergy status to narcotic agent; Z88.8 Allergy status to other drugs, medicaments and biological substances; Z79.2 Long term (current) use of antibiotics; Z79.899 Other long term (current) drug therapy; Z89.431 Acquired absence of right foot; Z95.1 Presence of aortocoronary bypass graft; Z87.891 Personal history of nicotine dependence

== ENCOUNTER 2019-11-17 13:37 | Inpatient (IN) | payer OTHER, MEDICAID ==
[~2019-11-17] VITALS: Ht 182.8 cm; Wt 95.3 kg
[2019-11-17 13:42] VITALS: BP 142/51
[2019-11-17 14:19] LABS: BASO % 0.5 % (0.0-1.0); EOS # 0.4 10*3/uL (0.0-0.4); EOS % 4.6 % (1.0-4.0); HEMATOCRIT 41.4 % (42.0-52.0); LYMPH # 1.7 10*3/uL (1.3-4.4); MEAN CELL VOLUME 90.4 fl (80.0-94.0); MEAN CORPUSCULAR HGB 29.3 pg (27.0-31.0); MEAN CORPUSCULAR HGB CONC 32.4 g/dl (33.0-37.0); MONO % 11.8 % (3.0-9.0); NEUT # 5.1 10*3/uL (2.3-7.9); NEUT % 61.7 % (47.0-73.0); PLATELET COUNT AUTOMATED 204 10*3/uL (130-400); RED BLOOD COUNT 4.58 10*6/uL (4.50-5.90); RED CELL DISTRI WIDTH 13.9 % (0-14.5); WHITE BLOOD COUNT 8.3 10*3/uL (4.8-10.8)
[2019-11-17] MEDS ORDERED: PREDNISONE50 MG PO (14:22)
[2019-11-17 14:33] LABS: ALBUMIN 3.2 gm/dl (3.1-4.5); ALKALINE PHOSPHATASE 64 U/L (45-117); BUN 19 mg/dl (7-24); CHLORIDE 110 mmol/L (98-107); CREATININE 1.18 mg/dL (0.70-1.30); LIPASE 148 U/L (73-393); POTASSIUM 4.4 mmol/L (3.5-5.1); SGOT/AST 19 IU/L (3-35); SGPT/ALT 17 U/L (12-78); SODIUM 139 mmol/L (136-145); TOTAL PROTEIN 7.4 gm/dL (6.4-8.2)
[2019-11-17 14:40] LABS: TROPONIN I < 0.015 ng/ml (<0.045)
[2019-11-17 14:45] LABS: ACT PARTIAL THROMBO TIME 26.5 SECONDS (20.0-32.1)
[2019-11-17 15:18] LABS: BILIRUBIN NEGATIVE (NEGATIVE); BLOOD NEGATIVE (NEGATIVE); CLARITY CLEAR (CLEAR); COLOR YELLOW (YELLOW); GLUCOSE NEGATIVE (NEGATIVE); KETONE NEGATIVE (NEGATIVE); LEUKO ESTERASE NEGATIVE (NEGATIVE); NITRITE NEGATIVE (NEGATIVE); PH 6.5 (5.0-9.0); RBC 0-2 rbc/hpf (0-2); UROBILINOGEN 0.2 E.U./dl (0.2-1.0); WBC 0-2 wbc/hpf (0-5)
[2019-11-17 17:35] VITALS: BP 150/73
[2019-11-17] MEDS ORDERED: PLAVIX75 M1 PO (17:49)
[2019-11-17] MEDS ORDERED: LISINOPRIL10 M1 PO (17:54)
[2019-11-17] MEDS ORDERED: CLARITIN10 MG PO (17:54)
[2019-11-17 20:00] VITALS: BP 140/62
[2019-11-18] VITALS: BP 116/53
[2019-11-18 08:00] VITALS: BP 132/62
[2019-11-18 08:32] LABS: BASO # 0.1 10*3/uL (0.0-0.1); BASO % 0.6 % (0.0-1.0); EOS # 0.3 10*3/uL (0.0-0.4); HEMATOCRIT 45.8 % (42.0-52.0); LYMPH % 22.7 % (27.0-41.0); MEAN CELL VOLUME 91.1 fl (80.0-94.0); MEAN CORPUSCULAR HGB CONC 31.9 g/dl (33.0-37.0); MEAN PLATELET VOLUME 10.9 fl (9.6-12.3); MONO # 0.8 10*3/uL (0.1-1.0); MONO % 9.2 % (3.0-9.0); NEUT # 5.5 10*3/uL (2.3-7.9); NEUT % 63.4 % (47.0-73.0); PLATELET COUNT AUTOMATED 204 10*3/uL (130-400); RED BLOOD COUNT 5.03 10*6/uL (4.50-5.90); RED CELL DISTRI WIDTH 13.8 % (0-14.5); WHITE BLOOD COUNT 8.6 10*3/uL (4.8-10.8)
[2019-11-18 10:11] LABS: BUN 19 mg/dl (7-24); CHLORIDE 109 mmol/L (98-107); POTASSIUM 4.4 mmol/L (3.5-5.1); SODIUM 137 mmol/L (136-145)
[2019-11-18 12:00] VITALS: BP 156/81
[2019-11-18 16:00] VITALS: BP 139/67
[2019-11-18 20:00] VITALS: BP 145/64
[2019-11-19] VITALS: BP 152/69
[2019-11-19 08:00] VITALS: BP 172/87
[2019-11-19 12:00] VITALS: BP 152/82
== END 2019-11-19 13:00 | DRG 72 ==
LOC: ED 13:37 → 5E 16:25 → EDHOLD 16:25 → 5E 16:49
PROVIDERS: Emergency Medicine; ADMIT Internal Medicine
DX: G93.41 Metabolic encephalopathy (principal); R62.7 Adult failure to thrive; I10 Essential (primary) hypertension; E11.51 Type 2 diabetes mellitus with diabetic peripheral angiopathy without gangrene; J44.9 Chronic obstructive pulmonary disease, unspecified; Z68.28 Body mass index [BMI] 28.0-28.9, adult; I69.320 Aphasia following cerebral infarction; Z79.84 Long term (current) use of oral hypoglycemic drugs; Z79.899 Other long term (current) drug therapy; Z89.511 Acquired absence of right leg below knee; Z95.1 Presence of aortocoronary bypass graft; Z89.412 Acquired absence of left great toe; Z87.891 Personal history of nicotine dependence; Z79.01 Long term (current) use of anticoagulants; Z88.6 Allergy status to analgesic agent; Z88.5 Allergy status to narcotic agent; Z20.828 Contact with and (suspected) exposure to other viral communicable diseases

== ENCOUNTER → 2020-06-24 | Outpatient (CLI) | payer OTHER ==
[~2020-06-24] MED LIST changes: +CLARITIN10 MG PO; +PREDNISONE50 MG PO
== END | disposition home or self-care (01) ==
LOC: ORTHO 00:18
PROVIDERS: ATTEND Orthopaedic Surgery
DX: M25.562 Pain in left knee (principal)